=== PATIENT | female | born 1985 ===

== ENCOUNTER 2024-12-16 22:34 | Emergency (ER) | payer OTHER, SELFPAY ==
[2024-12-16 22:38] VITALS: BP 136/86; PULSE 62
[2024-12-16 22:43] VITALS: BP 122/84; PULSE 80; RESP 16; TEMP 36.8; O2SAT 99; BMI 22.6
--- NOTE | 2024-12-16 23:01 | ED.HA ---
HPI - Headache General Chief Complaint: Headache Stated Complaint: headache, dizzy x 2 weeks Time Seen by Provider: 12/16/24 22:37 Source: patient Mode of arrival: EMS Limitations: no limitations History of Present Illness ED Provider: HPI Narrative: Patient's history of migraine headache been having vertiginous feeling for last 2 weeks traveling from [place] to [place] with history of substance abuse in the past was seen at the [facility] 2 weeks ago for same asking for Fioricet which she used to take the about 10 years ago headache is bilateral no tinnitus no light sensitivity has slight nausea earlier Related Data Previous Rx's ?Medication ?Instructions ?Recorded ibuprofen 600 mg tablet 600 mg PO Q6H PRN fever or pain 12/17/24 #30 tabs meclizine 25 mg tablet 25 mg PO TID PRN dizziness #20 tabs 12/17/24 Allergies Allergy/AdvReac Type Severity Reaction Status Date / Time Sulfa (Sulfonamide Allergy Unknown RASH Verified 12/16/24 22:50 Antibiotics) [SULFA (SULFONAMIDE ANTIBIOTICS)] Review of Systems Review of Systems: Yes all other systems are reviewed and are negative [facility] Social History Social History Advance Directives: No Advance Directives Information Provided: No Physical Exam Vital Signs: Vital Signs: Last Vital Signs Temp 98.2 F 12/17/24 00:42 Pulse 79 12/17/24 00:42 Resp 14 12/17/24 00:42 BP 98/56 L 12/17/24 00:42 Pulse Ox 99 12/17/24 00:42 O2 Del Method Room Air 12/17/24 00:42 BMI result Body Mass Index 22.6 Appearance: Alert. Oriented X3. No acute distress. Eyes: PERRLA, No Nystagmus ENT: Pharynx normal. Oral Mucosa moist Neck: Normal inspection. Neck supple. CVS: Normal heart rate and rhythm. Pulses normal. Respiratory: No respiratory distress. Equal air entry bilateral, no wheezing/rales/rhonchi Abdomen: Soft and nontender. Bowel sounds are present, no mass palpable, no CVA tenderness Skin: Skin warm and dry. Normal skin color. Normal skin turgor. Extremities: No lower extremity edema. No calf tenderness Neuro: Oriented X 3. No motor deficit. No sensory deficit.No cerebellar signs , cranial nerves II-XII intact Medications Administered Discontinued Medications Generic Name Dose Route Start Last Admin Trade Name Freq PRN Reason Stop Dose Admin Acetaminophen/Butalbital/Caffeine 1 tab 12/16/24 23:09 12/16/24 23:18 Butalb/Acetamin/Caff 50/325/40 Tablet PO 12/16/24 23:10 1 tab ONCE ONE Administration Meclizine HCl 25 mg 12/16/24 23:09 12/16/24 23:18 Meclizine Hcl 25 Mg Tablet PO 12/16/24 23:10 25 mg ONCE ONE Administration Sumatriptan Succinate 6 mg 12/16/24 23:09 12/16/24 23:18 Sumatriptan Succinate 6 Mg/0.5 Ml Vial SUBCUT 12/16/24 23:10 6 mg ONCE ONE Administration Medical Decision Making Medical Decision Making [facility] Narrative: Patient's headache with vertigo likely benign positional vertigo headache improved after Imitrex meclizine was given for dizziness patient ambulatory in his steady gait will discharge patient home Discharge Plan Discharge Clinical Impression: Migraine, Vertigo Patient Disposition: Home, Self-Care Instructions: Migraine Headache (ED), Vertigo (ED) Additional Instructions: Care and cautions as advised Medication for dizziness as needed every 8 hours Tylenol/Motrin for headaches Prescriptions: New meclizine 25 mg tablet 25 mg PO TID PRN (Reason: dizziness) Qty: 20 0RF ibuprofen 600 mg tablet 600 mg PO Q6H PRN (Reason: fever or pain) Qty: 30 0RF Interventions: ED Discharge Assessment Last Done: 12/17/24 00:42 Discharge Date/Time: 12/17/24 01:03 Print Language: [place] Islander
[2024-12-16] MEDS: SUMAtriptan succinate 6 MG/0.5 ML VIAL SUBCUT (23:18)
[2024-12-16] MEDS: Butalb/Acetamin/Caff 50/325/40 TABLET 1 TAB PO (23:18)
[2024-12-16] MEDS: Meclizine HCl 25 MG TABLET PO (23:18)
[2024-12-16 23:21] VITALS: BP 116/78; PULSE 66
[2024-12-16 23:22] VITALS: BP 123/86; PULSE 71
[2024-12-16 23:24] VITALS: BP 137/88; PULSE 76
[2024-12-16 23:37] VITALS: PULSE 73; RESP 12; TEMP 36.5; O2SAT 99
[2024-12-17 00:42] VITALS: BP 98/56; PULSE 79; RESP 14; TEMP 36.8; O2SAT 99
== END 2024-12-17 01:03 | disposition home or self-care (01) ==
PROVIDERS: Emergency Provider Internal Medicine
DX: G43.909 Migraine, unspecified, not intractable, without status migrainosus (principal); R42 Dizziness and giddiness; R11.0 Nausea; Z79.899 Other long term (current) drug therapy
CPT/HCPCS: 96372; 99284; J3030

== ENCOUNTER 2024-12-19 07:16 | Emergency (ER) | payer OTHER, SELFPAY ==
[2024-12-19 07:18] VITALS: BP 95/34; PULSE 76; RESP 18; TEMP 36.2; O2SAT 98; BMI 21.9
--- OUTSIDE RECORDS SUMMARY | 2024-12-19 07:43 | XMS_ITS | Encounter Summary ---
Author Organization [facility] Address [address] [place] [address] Care Team Providers Care Hunting And Fishing Guide Name Role Phone Ab Hope Primary Care Provider [phone] Encounter Details Date Type Department Care Team (Late st Contact Info) Description 11/22/2024 1:00 PM EST Office Visit [email or web address] @ [address] [phone] Ab Hope PA [address] [place] [phone] Bacterial vaginosis (Primary Dx); Onychomycosis; Exposure to HIV Social History Tobacco Use Types Packs/Day Years Used Date Smoking Tobacco: Never Assessed Social Connections Answer Date Recorded Connectedness 0 09/06/2024 Financial Resource Strain Answer Date R ecorded Financial Resource Strain 1 2023 Stress Answer Date Recorded Stress 0 09/06/2024 Physical Activity Answer Date Recorded Physical Activity 0 09/06/2024 Food Insecurity Answer Date Recorded Food 1 09/06/2024 Transportation Needs Answer Date Record ed Transportation 2 09/06/2024 Housing Stability Answer Date Recorded Housing 2 09/06/2024 Safety and Environment Answer Date Fazal rded Safety 0 09/06/2024 Utilities Answer Date Recorded Utilities 1 09/06/2024 Employment Answer Date Recorded Stress 1 09/06/2024 Comments Unknown Sex and Gender Information Value Date Recorded Sex Assigned at Not on file Legal Sex Female 7:29 AM PDT Gender Identity Not on file Sexual Orientation Not on file documented as of this encounter Last Filed Vital Signs Vital Sign Reading Time Taken Comments Blood Pressure 134/80 11/22/2024 1:30 PM EST Pulse 81 11/22/2024 1:30 PM EST Temperature 36.6 ??C (97.8 ??F) 11/22/2024 1:30 PM ES T Respiratory Rate - - Oxygen Saturation 96% 11/22/2024 1:30 PM EST Inhaled Oxygen Concentration - - Weight - - Height - - Body Mass Index - - documented in this encounter Plan of Treatment Not on file documented as of this encounter Procedures Procedure Name Priority Date/Time Associated Diagnosis Comments CINTHIA ADVANCED VAGINITIS PLUS, TMA Routine 11/22/2024 2:10 PM EST Bacterial vaginosis documented in this encounter Results * C TRACHOMATIS/N GONORRHOEAE RNA,TMA (11/25/2024 3:43 PM EST) Pathologist [facility] CHLAMYDIA TRACHOMATIS RNA, TMA NOT DETECTED NOT DETECTED [facility] NEISSERIA GONORRHOEAE RNA, TMA NOT DETECTED NOT DETECTED [facility] COMMENT [facility] Urine Urine specimen / Unknown 11/25/2024 3:43 PM EST 11/25/2024 3:44 PM EST Narrative [employer] [facility] - 11/28/2024 1:28 PM EST The analytical performance characteristics of this assay, when used to test SurePath(TM) specimens have been determined by [employer]. The modifications have not been cleared or approved by the FDA. This assay has been validated pursuant to the CLIA regulations and is used for clinical purposes. For additional information, please refer to https://education.[employer]faq/QIS112 (This link is being provided for information/ educational purposes only.) [facility] - NO BLOOD DRAW Edited Resul t - Final [facility] [address] [address], [facility] [address] [address] * (ABNORMAL) COMPREHENSIVE METABOLIC PANEL (11/25/2024 3:43 PM EST) Pathologist [facility] GLUCOSE 102(H) 65 - 99 mg/dL [facility] Comment: ?Fasting reference interval For someone without known diabetes, a glucose value between 100 and 125 mg/dL is consistent with prediabetes and should be confirmed with a follow-up test. UREA NITROGEN (BUN) 18 7 - 25 mg/dL [facility] CREATININE (blood) 0.92 0.50 - 0.99 mg/dL [facility] EGFR 80 > OR = 60 mL/min/1. 73m2 [facility] BUN/CREATININE RATIO SEE NOTE: [facility] Comment: ?? Not Reported: BUN and Creatinine are within ?? reference range. ? SODIUM 138 135 - 146 mmol/L [facility] POTASSIUM 3.9 3.5 - 5.3 mmol/L [facility] CHLORIDE 101 98 - 110 mmol/L [facility] CARBON DIOXIDE 27 20 - 32 mmol/L [facility] CALCIUM 9.2 8.6 - 10.2 mg/dL [facility] PROTEIN, TOTAL 7.3 6.1 - 8.1 g/dL [facility] ALBUMIN 4.4 3.6 - 5.1 g/dL [facility] GLOBULIN 2.9 1.9 - 3.7 g/dL (calc) [facility] ALBUMIN/GLOBULI N RATIO 1.5 1.0 - 2.5 (calc) [facility] BILIRUBIN, TOTAL 0.4 0.2 - 1.2 mg/dL [facility] ALKALINE PHOSPHATASE 70 31 - 125 U/L [facility] AST 19 10 - 30 U/L [facility] ALT 15 6 - 29 U/L [facility] Blood Blood / Unknown 11/25/2024 3 :43 PM EST 11/25/2024 3:44 PM EST [facility] - BLOOD DRAW Edited Result - Final [facility] [address] [address], [facility] [address] [phone] * HIV 1/2 AG & AB W/RFLX (4TH GEN) (11/25/2024 3:43 PM EST) HIV AG/AB, 4TH GEN NON-REAC TIVE NON-REAC TIVE [facility] Comment: HIV-1 antigen and HIV-1/HIV-2 antibodies were not detected. There is no laboratory evidence of HIV infection. PLEASE NOTE: This information has been disclosed to you from records whose confidentiality may be protected by state law. ??If your state requires such protection, then the state law prohibits you from making any further disclosure of the information without the specific written consent of the person to whom it pertains, or as otherwise permitted by law. A general authorization for the release of medical or other information is NOT sufficient for this purpose. ?? For additional information please refer to http://education.[employer]faq/KWX682 (This link is being provided for informational/ educational purposes only.) The performance of this assay has not been clinically validated in patients less than 2 years old. Blood Blood / Unknown 11/25/2024 3 :43 PM EST 11/25/2024 3:44 PM EST us [facility] - BLOOD DRAW Final Result Performing Organization Address [facility] de Phone Number [employer] [address] [place] [address], [employer] [address] [phone] * SYPHILIS ANTIBODY CASCADING REFLEX (11/25/2024 3:43 PM EST) T. PALLIDUM AB, EIA NEGATIVE NEGATIVE [employer] [facility] Comment: No antibodies to T. pallidum (the agent causing syphilis) were detected in the specimen. This result, however, does not exclude very recent T. pallidum infection; testing of a second specimen, collected 2-4 weeks after this specimen, is recommended if the index of suspicion for recent infection is high. Blood Blood / Unknown 11/25/2024 3 :43 PM EST 11/25/2024 3:44 PM EST us [facility] - BLOOD DRAW Final Result Performing Organization Address [facility] [address] [facility] Co de Phone Number [employer] [address] [place] [address], [employer] [address] [phone] * (ABNORMAL) SURESWAB ADVANCED VAGINITIS PLUS, TMA (11/22/2024 2:10 PM EST) CHLAMYDIA TRACHOMATIS RNA, TMA NOT DETECTED NOT DETECTED [facility] NEISSERIA GONORRHOEAE RNA, TMA NOT DETECTED NOT DETECTED [facility] COMMENT [facility] SURESWAB(R) ADV BACTERIAL VAGINOSIS (BV), TMA NEGATIVE NEGATIVE [facility] TRICHOMONAS VAGINALIS (TV), TMA NOT DETECTED NOT DETECTED [facility] MIRYAM SPECIES NOT DETECTED NOT DETECTED [facility] MIRYAM GLABRATA DETECTED(A) NOT DETECTED [facility] Comment: C. glabrata, which is responsible for the majority of non-albicans CV in the [place] may have decreased susceptibility to standard antimycotic therapeutic intervention compared to C. albicans. COMMENT [facility] Vaginal Fluid Vaginal structure / Unknown 11/22/2024 2:10 PM EST 11/23/2024 9:28 AM EST Narrative [facility] - 11/24/2024 2:43 AM EST Miryam species C. albicans, C. tropicalis, C. parapsilosis, and/or C. dubliniensis can be detected, but not differentiated, in the Miryam spp. result. For additional information, please refer to https://education.[employer]faq/VOY254 (This link is being provided for information/ educational purposes only.) [facility] - NO BLOOD DRAW Final Result [facility] [address] [address], [facility] [address] [phone] documented in this encounter Visit Diagnoses Diagnosis Bacterial vaginosis- Primary Vaginitis and vulvovaginitis, unspecified Onychomycosis Dermatophytosis of nail Exposure to HIV Contact with or exposure to other viral diseases documented in this encounter Care Teams Hunting And Fishing Guide Relationship Specialty Start Date End Date Ab Hope PA [address] [place] [phone] PCP - General FAMILY MEDICINEKIM 11/14/24 documented as of this encounter
--- OUTSIDE RECORDS SUMMARY | 2024-12-19 07:43 | XMS_ITS | Referral Summary ---
Author Organization [facility] Address [address] [place] [address] Care Team Providers Care Research & Analytics Manager Name Role Phone Patient, Has No Pcp Or Ref Primary Care Provider Unavailable Allergies Active Allergy Reactions Criticality Noted Date Comments Sulfa (Sulfonamide Antibiotics) Rash Medium 12/17 Medications * This document contains information received from the source organization and may not represent a complete record from that organization. buprenorphine- naloxone (Suboxone) 2-0.[address] 1 Film (2 mg of buprenorphine total) under the tongue once a day. 30 Film 4 Active lisdexamfetami ne (Vyvanse) 50 mg capsule Take 1 capsule (50 mg total) by mouth once a day. 30 capsule 4 Active Active Problems Problem Noted Date Diagnosed Date Cellulitis of buttock 04/19/2024 Assessment & Plan (04/19/2024 10:02 AM EDT): Discussed use of warm compresses. Will treat with duricef bid x 10 days. Attention deficit hyperactiv ity disorder (ADHD), combined type 02/22/2024 Assessment & Plan (04/19/2024 10:02 AM EDT): Will fill medication for 1 mo as was preiously done. PDMP shows regular fills of Vyvanse. Advised htat she will have to go to [facility] for further refills if she is going to stay in [place]. Gave her the cotact info for that office. Uncomplicated opioid dependence 02/08/2024 Assessment & Plan (04/19/2024 10:02 AM EDT): Rx sent today; advised re: follow up at [facility] for further refills. Social History Tobacco Use Types Packs/Day Years Used Date Smoking Tobacco: Never Smokeless Tobacco: Current Tobacco Cessation:Ready to Q uit: Not Asked; Counseling Given: Not Answered Alcohol Use Standard Drinks/Week Comments Yes 0 (1 standard drink = 0.6 oz pur e alcohol) Comments Unknown Sex and Gender Information Value Date Recorded Sex Assigned at Female 12/27/2023 1:14 AM EST Legal Sex Female 1:09 PM EDT Gender Identity Not on file Sexual Orientation Not on file Last Filed Vital Signs Vital Sign Reading Time Taken Comments Blood Pressure 102/85 02/14/2024 10:11 AM EDT Pulse 82 02/14/2024 10:11 AM EDT Temperature 36.6 ??C (97.8 ??F) 02/13/2024 8:33 PM ED T Respiratory Rate 18 02/14/2024 10:11 AM EDT Oxygen Saturation 97% 02/14/2024 10:11 AM EDT Inhaled Oxygen Concentration - - Weight 72.6 kg (160 lb) 02/13/2024 8:33 PM EDT Height 160 cm (5' 3 ) 02/13/2024 8:33 PM EDT Body Mass Index 28.34 02/13/2024 8:33 PM EDT Plan of Treatment Not on file Insurance [place] [employer] Care Teams Research & Analytics Manager Relationship Specialty Start Date End Date Patient, Has No Pcp Or Ref DO NOT EDIT THIS RECORD VIA PROVIDER ON THE FLY PCP - General Associate Pastor 02/14/24
--- OUTSIDE RECORDS SUMMARY | 2024-12-19 07:43 | XMS_ITS | Clinical Summary ---
Author Organization [facility] Address [address] [place] [address] Care Team Providers Care Longwall Headgate Operator Name Role Phone Patient, Has No Pcp [...] htat she will have to go to [facility] for further refills if she is going to stay in [place]. Gave her the cotact info for that office. Uncomplicated opioid dependence 02/08/2024 Assessment & Plan (04/19/2024 10:02 AM EDT): Rx sent today; advised re: follow up at [facility] for further refills. Social History Tobacco Use [...] 02/13/2024 8:33 PM EDT Plan of Treatment Health Maintenance Due Date Last Done Comments Cervical Cancer Screening 1985 HPV and Pap Smear 1983 Hepatitis C Screening 1985 Pap Smear 1983 Varicella Vaccines (1 of 2 - 13+ 2-dose series) 1996 Hepatitis B Vaccines (1 of 3 - 19+ 3-dose series) 2002 DTaP,Tdap,and Td Vaccines (1 - Tdap) 2005 Mammogram 2023 COVID-19 Vaccine ( - 2023-2 5 season) 2024 Influenza Vaccine (#1) 2024 Alcohol/Substance Use Screening 11/16/2024 Social Drivers of Health Leidy ual Screening 11/16/2024 RSV Vaccine (60+ years old a nd patients) (1 - 1-dose 75+ series) 2058 HIV Screening Completed 12/27/2023 Pneumococcal Vaccine: Pediat bryant (0-5 Years) and At-Risk Patients (6-64 Years) Aged Out No longer eligible b ased on patient's age to complete this topic Insurance [facility] MEDICAID Care Teams Longwall Headgate Operator Relationship Specialty Start Date End Date Patient, Has No Pcp Or Ref DO NOT EDIT THIS RECORD VIA PROVIDER ON THE FLY PCP - General Pipe Fitter Ammonia 02/14/24
--- OUTSIDE RECORDS SUMMARY | 2024-12-19 07:43 | XMS_ITS | Encounter Summary ---
Author Organization [facility] Address [address] [place] [address] Care Team Providers Care Film Process Operator Name Role Phone Ab Hope Primary Care Provider [phone] Reason for Visit * Reason Comments Test Results Vaginitis/Bacterial Vaginosis Encounter Details Date Type Department Care Team (Latest Contact Info) Description 11/24/2024 9:30 AM EST Office Visit [email or web address] @ [address] [phone] Ab Hope PA [address] [place] [phone] Saroj glabrata infection (Primary Dx); Bacterial vaginosis; Encounter for contraceptive management, unspecified type; Unsheltered homelessness Social History Tobacco Use Types Packs/Day Years [...] on file documented as of this encounter Progress Notes * KIM Hand - 11/24/2024 3:25 PM ESTAssociated Problem(s): Unsheltered homelessness - staying at [facility] in [place] - Patient is currently homeless as documented in homeless status for this encounter. - Given complex limitations of homelessness, provided care as appropriate. Will continue to supportas possible. * KIM Hand - 11/24/2024 3:25 PM ESTAssociated Problem(s): Contraception management - Continue with mirena. Due for removal in 1 yr. 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 * KIM Hand - 11/24/2024 3:23 PM ESTAssociated Problem(s): Bacterial vaginosis - Repeat sureswab negative for BV - If BV reoccurs would cosnider maintenance therapy * KIM Hand - 11/24/2024 3:21 PM ESTAssociated Problem(s): Saroj glabrata infection - Endorses new vaginal/vulvar discomfort/irritation. Surewab positive for saroj glabrate. - Interested in treatment options. Will treat with boric acid suppositories for 2 weeks. Continues with IUD. * KIM Hand - 11/24/2024 2:49 PM EST Provider Ambulatory Note Name: Ilana Newton : 1985 Age: [age] year old Gender: female Address: [address] [place] [id number] Encounter Date: 11/24/2024 Primary Provider: KIM Hand Provider: KIM Hand Department: [facility] Reason for Visit: Chief Complaint Patient presents with Test Results Vaginitis/Bacterial Vaginosis SUBJECTIVE: Ilana Newton is a 39 year old female who presents to the clinic at [facility] to follow-up ontest results from earlier this week. Endorses improved sx after BV tx but with recurrence of discomfort, irritation. Resutls with positive for saroj glabrate. Would like to proceed with treatment. Not covered by insurance. 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 Reviewed plan for repeat testing s/p exposure. Will go to [address] [place] [address] Already scheduled to go there for legal clinic. Denies F/C, N/V, CP, and SOB. Medications Current Outpatient Medications Medication Sig Dispense Refill boric acid, bulk, gran Place 600 mg vaginally nightly at bedtime for 14 days 8.4 g 0 terbinafine (LAMISIL) 250 mg tablet Take 1 Tablet by mouth once daily 30 Tablet 0 dolutegravir (TIVICAY) 50 mg tab Take 1 Tablet by mouth once daily 28 Tablet 0 emtricitabine-tenofovir, TDF, (TRUVADA) 200-300 mg per tablet Take 1 Tablet by mouth once daily 28 Tablet 0 econazole 1 % cream Apply topically once daily 30 g 0 No current facility-administered medications for this visit. Allergies Allergies Allergen Reactions Sulfa (Sulfonamide Antibiotics) Rash Risk Factors - Substance Use: Tobacco Use Tobacco History Tobacco Use Smoking Status Not on file Smokeless Tobacco Not on file Review of Systems Review of Systems OBJECTIVE: Vitals Signs: There were no vitals filed for this visit. Physical Exam Constitutional: General: She is not in acute distress. Appearance: She is well-developed. Pulmonary: Effort: Pulmonary effort is normal. No respiratory distress. Neurological: Mental Status: She is alert and oriented to person, place, and time. Psychiatric: Behavior: Behavior normal. Thought Content: Thought content normal. Most recent labs on file: No results found for: WBC , NEUTROPHILS , LYMPHOCYTES , MIDRANGE , RBC , HGB , HCT , MCV , MCH , MCHC , RDW , PLATELETS , MPV , MONOCYTES , MONOCYTESPCT , EOSINOPHILS , BASOPHILS , BASOPHILSPCT , MONONUCLEAR , BANDS Lab Results Component Value Date NA 140 09/06/2024 K 3.8 09/06/2024 CHLORIDE 102 09/06/2024 CO2 30 09/06/2024 CALCIUM 9.8 09/06/2024 BUN 20 09/06/2024 BUNCREAT SEE NOTE: 09/06/2024 EGFR 80 09/06/2024 CREATININE 0.92 09/06/2024 PROTEIN 7.1 09/06/2024 ALBUMIN 4.5 09/06/2024 GLOBULIN 2.6 09/06/2024 AGRATIO 1.7 09/06/2024 AST 17 09/06/2024 ALT 13 09/06/2024 ALKPHOS 75 09/06/2024 BILIRUBIN 0.2 09/06/2024 GLUCOSE 67 09/06/2024 No results found for: HGBA1C No results found for: TRIGLYC , CHOL , HDL , LDL , LDLHDL , CHOLHDL , VLDL , NONHDL ASSESSMENT/PLAN: General Counseling topics: There is no height or weight on file to calculate BMI. Tobacco History Tobacco Use Smoking Status Not on file Smokeless Tobacco Not on file - Depression screening is due for this patient This Visit PHQ2 Last PHQ9 score On File No data to display SBIRT screening: General Counseling Discussed: Deferred till next visit Problem List Items Addressed This Visit Contraception management - Continue with mirena. Due for removal in 1 yr. 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 Bacterial vaginosis - Repeat sureswab negative for BV - If BV reoccurs would cosnider maintenance therapy Unsheltered homelessness - staying at [facility] in [place] - Patient is currently homeless as documented in homeless status for this encounter. - Given complex limitations of homelessness, provided care as appropriate. Will continue to supportas possible. Saroj glabrata infection - Primary - Endorses new vaginal/vulvar discomfort/irritation. Surewab positive for saroj glabrate. - Interested in treatment options. Will treat with boric acid suppositories for 2 weeks. Continues with IUD. documented in this encounter Plan of Treatment Not on file documented as of this encounter Visit Diagnoses Diagnosis Saroj glabrata infection- Primary Candidiasis of unspecified site Bacterial vaginosis Vaginitis and vulvovaginitis, unspecified Encounter for contraceptive management, unspecified type Unsheltered homelessness documented in this encounter Care Teams Film Process Operator Relationship Specialty Start Date End Date Ab Hope PA [address] [place] [phone] PCP - General FAMILY MEDICINEKIM 11/14/24 documented as of this encounter
--- OUTSIDE RECORDS SUMMARY | 2024-12-19 07:43 | XMS_ITS | Encounter Summary ---
Author Organization [facility] Address [address] [place] [address] Care Team Providers Care Electrical Engineering Manager Name Role Phone Ab Hope Primary Care Provider [phone] Reason for Visit * Reason Comments Lab Result Encounter Details Date Type Department Care Team (Late st Contact Info) Description 10/12/2024 10:00 AM EST Office Visit [facility] @ [address] [address] Alana Blackman, RITA [address] [place] [address] Bacterial vaginosis (Primary Dx) Social History Tobacco Use Types Packs/Day Years [...] Sign Reading Time Taken Comments Blood Pressure 117/73 10/12/2024 10:42 AM EST Pulse 101 10/12/2024 10:42 AM EST Temperature 36.8 ??C (98.2 ??F) 10/12/2024 10:[address] Respiratory Rate - - Oxygen Saturation 99% 10/12/2024 10:42 AM EST Inhaled Oxygen Concentration - - Weight 56.3 kg (124 lb 3.2 oz) 10/12/2024 10:42 AM EST Height 162.6 cm (5' 4 ) 10/12/2024 10:42 AM EST Body Mass Index 21.32 10/12/2024 10:42 AM EST documented in this encounter Progress Notes * Alana Blackman NP - 10/12/2024 10:45 AM ESTAssociated Problem(s): Bacterial vaginosis Sureswab positive for bacterial vaginosis. Sending metronidazole 500mg BID x7d. * Alana Blackman NP - 10/12/2024 10:41 AM EST Provider Ambulatory Note Name: Ilana Newton : 1985 Age: [age] year old Gender: female Address: [address] [place] [id number] Encounter Date: 10/12/2024 Primary Provider: No primary care provider on file. Provider: [facility] Open Access Department: [facility] Reason for Visit: Chief Complaint Patient presents with Lab Result SUBJECTIVE: Ilana Newton is a 39 year old female who presents to the clinic for lab results. Came in to review result of sureswab. Feeling relieved at results. Not a drinker so okay with oral metronidazole. No other concerns today. Medications Current Outpatient Medications Medication Sig Dispense Refill terbinafine (LAMISIL) 250 mg tablet Take 1 Tablet by mouth once daily 30 Tablet 0 No current facility-administered medications for this visit. Allergies Allergies Allergen Reactions Sulfa (Sulfonamide Antibiotics) Rash Risk Factors - Substance Use: Tobacco Use Tobacco History Tobacco Use Smoking Status Not on file Smokeless Tobacco Not on file Review of Systems Review of Systems OBJECTIVE: Vitals Signs: Vitals: 10/12/24 1042 BP: 117/73 Pulse: (!) 101 Temp: 98.2 ??F (36.8 ??C) SpO2: 99% Weight: 124 lb 3.2 oz (56.3 kg) Height: 5' 4 (1.626 m) Physical Exam Vitals reviewed. Constitutional: General: She is not in acute distress. Appearance: She is well-developed. She is not diaphoretic. HENT: Head: Normocephalic and atraumatic. Pulmonary: Effort: Pulmonary effort is normal. No respiratory distress. Skin: General: Skin is warm and dry. Neurological: Mental Status: She is alert and oriented to person, place, and time. Psychiatric: Behavior: Behavior normal. Most recent labs on file: No [...] VLDL , NONHDL ASSESSMENT/PLAN: General Counseling topics: Body mass index is 21.32 kg/m??. Tobacco History Tobacco Use Smoking Status Not on file Smokeless Tobacco Not on file - Depression screening is due for this patient This Visit PHQ2 Last PHQ9 score On File No data to display SBIRT screening: General Counseling Discussed: No intervention required Problem List Items Addressed This Visit Bacterial vaginosis - Primary Sureswab positive for bacterial vaginosis. Sending metronidazole 500mg BID x7d. Alana Blackman NP documented in this encounter Plan of Treatment Not on file documented as of this encounter Visit Diagnoses Diagnosis Bacterial vaginosis- Primary Vaginitis and vulvovaginitis, unspecified documented in this encounter Care Teams Electrical Engineering Manager Relationship Specialty Start Date End Date Ab Hope PA [address] [place] [address] PCP - General [facility] 11/14/24 documented as of this encounter
--- OUTSIDE RECORDS SUMMARY | 2024-12-19 07:43 | XMS_ITS | Encounter Summary ---
Author Organization [facility] Address [address] [place] [address] Care Team Providers Care Tile Inspector Name Role Phone Ab Hope Primary Care Provider [phone] Reason for Visit * Reason Comments STI Exposure Encounter Details Date Type Department Care Team (Latest Contact Info) Description 10/27/2024 10:00 AM EST Office Visit [facility] @ [address] [address] Ab Hope PA [address] [place] [phone] Opioid dependence in remission ([facility]) (Primary Dx); Unsheltered homelessness; Alcohol use; Possible exposure to STI; Exposure to HIV; Bacterial vaginosis; Onychomycosis; Encounter for contraceptive management, unspecified type Social History Tobacco Use Types Packs/Day Years [...] encounter Progress Notes * KIM Hand - 10/27/2024 3:39 PM ESTAssociated Problem(s): Contraception management - Continue with mirena. Due for removal in 1 yr. F/b [employer] in [place]. * KIM Hand - 10/27/2024 3:38 PM ESTAssociated Problem(s): Onychomycosis - Started on oral terbinafine for onychomycosis tx but lost medications. Will continue with topicalantifungal and defer oral tx at this time until more stable situation and can reconsider oral tx. * KIM Hand - 10/27/2024 3:36 PM ESTAssociated Problem(s): Bacterial vaginosis - Sureswab positive for bacterial vaginosis 10/10. S/p metronidazole 500mg BID x7d. - Reports malodor after recent STI exposure. Ppx tx for Trich with metronidazole. Will plan for 7 day course to also cover possible recurrence of BV * KIM Hand - 10/27/2024 3:34 PM ESTAssociated Problem(s): Exposure to HIV -Condom-less vaginal sex with unknown partner with blood in semen on pm of 10/24. Within 72 hr window. Not usual partner, consensual. Intoxicated at the time. Declines ED for SANE for intoxicated sex. - Counseled on options. Interested in STD ppx and HIV PEP. - Recent negative labwork for HIV. Cre wnl.Ok to start PEP for HIV. * KIM Hand - 10/27/2024 3:34 PM ESTAssociated Problem(s): Possible exposure to STI Condom-less vaginal sex with unknown partner with blood in semen on pm of 10/24. Within 72 hr window. Not usual partner, consensual. Intoxicated at the time. Declines ED for SANE for intoxicated sex. - Counseled on options. Interested in STD ppx and HIV PEP. - STI ppx- Ceftriaxone, metronidazole, and azithromycin. No ceftriaxone in office but agreeable to picking up medications from pharmacy and bring back to clinic. * KIM Hand - 10/27/2024 3:29 PM ESTAssociated Problem(s): Alcohol use - Hx of WOOD and problematic EtOH use. Reports drinking too much prior to STI exposure - Discussed MAT. Declines as limited, occasional EtOH intake. - Provided support and motivational interviewing to cont in recovery. * KIM Hand - 10/27/2024 3:27 PM ESTAssociated Problem(s): Opioid dependence in remission ([facility]) - Hx of opoid dependence - Previously on suboxone but not since the spring. - Continues without cravings or thoughts of use - Reviewed OD prevention and that MAT available if needed * KIM Hand - 10/27/2024 3:26 PM ESTAssociated Problem(s): [facility] - Patient is currently homeless as documented in homeless status for this encounter. - Given complex limitations of homelessness, provided care as appropriate. Will continue to supportas possible. * KIM Hand - 10/27/2024 10:28 AM EST Provider Ambulatory Note [facility] Name: Ilana Newton : 1985 Age: [age] year old Gender: female Address: [address] [place], [place] [id number] Encounter Date: 10/27/2024 Primary Provider: No primary care provider on file. Provider: KIM Hand Department: [facility] Reason for Visit: Chief Complaint Patient presents with STI Exposure SUBJECTIVE: Ilana Newton is a 39 year old female [facility] STI exposure- Condom-less vaginal sex with unknown partner with blood in semen on pm of 10/24. Within 72 hr window. Not usual partner, consensual. Intoxicated at the time. Declines ED for SANE for intoxicated sex. Interested in STD ppx and HIV PEP. Recently completed tx for BV. Reports today with malodor today which is different. Denies discharge, pruritus, n/v/d, dysuria, urinary frequency. WOOD- Reports hx of WOOD. Previously on suboxone but denies recent opioid use or cravings. Not interested in suboxone. Reports hx of intermittent crack. EtOH- Reports drank too much prior to STI exposure. Reports intermittent ETOH. Homelessness- Reports that she has an apartment n [place]. Living on streets in [place]. Doesn't feel stuck in [place] but doesn't want to return to [place] until she's physically, mentally,and spiritually whole. Wants respite or retreat so that she can focus on self so that she feels that she can return to apartment. Discussed [facility] admission for care coordination, respite. Declines today as has appointment with social security and concerned about partner who speaks primarily German. Medications Current Outpatient Medications Medication Sig Dispense Refill econazole 1 % cream Apply topically once daily 30 g 0 terbinafine (LAMISIL) 250 mg tablet Take 1 Tablet by mouth once daily 30 Tablet 0 No current facility-administered medications for this visit. Allergies Allergies Allergen Reactions Sulfa (Sulfonamide Antibiotics) Rash Risk Factors - Substance Use: Tobacco Use Tobacco History Tobacco Use Smoking Status Not on file Smokeless Tobacco Not on file Review of Systems Review of Systems See HPI OBJECTIVE: Vitals Signs: There were no vitals [...] , CHOLHDL , VLDL , NONHDL ASSESSMENT/PLAN: Problem List Items Addressed This Visit Contraception management - Continue with mirena. Due for removal in 1 yr. F/b [employer] in [place]. Bacterial vaginosis - Sureswab positive for bacterial vaginosis 10/10. S/p metronidazole 500mg BID x7d. - Reports malodor after recent STI exposure. Ppx tx for Trich with metronidazole. Will plan for 7 day course to also cover possible recurrence of BV [facility] - Patient is currently homeless as documented in homeless status for this encounter. - Given complex limitations of homelessness, provided care as appropriate. Will continue to supportas possible. Opioid dependence in remission ([facility]) (Chronic) - Hx of opoid dependence - Previously on suboxone but not since the spring. - Continues without cravings or thoughts of use - Reviewed OD prevention and that MAT available if needed Onychomycosis - Started on oral terbinafine for onychomycosis tx but lost medications. Will continue with topicalantifungal and defer oral tx at this time until more stable situation and can reconsider oral tx. Alcohol use - Primary - Hx of WOOD and problematic EtOH use. Reports drinking too much prior to STI exposure - Discussed MAT. Declines as limited, occasional EtOH intake. - Provided support and motivational interviewing to cont in recovery. Possible exposure to STI Condom-less vaginal sex with unknown partner with blood in semen on pm of 10/24. Within 72 hr window. Not usual partner, consensual. Intoxicated at the time. Declines ED for SANE for intoxicated sex. - Counseled on options. Interested in STD ppx and HIV PEP. - STI ppx- Ceftriaxone, metronidazole, and azithromycin. No ceftriaxone in office but agreeable to picking up medications from pharmacy and bring back to clinic. Exposure to HIV -Condom-less vaginal sex with unknown partner with blood in semen on pm of 10/24. Within 72 hr window. Not usual partner, consensual. Intoxicated at the time. Declines ED for SANE for intoxicated sex. - Counseled on options. Interested in STD ppx and HIV PEP. - Recent negative labwork for HIV. Cre wnl.Ok to start PEP for HIV. * Gabbi Benton RN - 10/27/2024 10:00 AM EST Subjective: Ilana Newton is a 39 year old female who presents with No chief complaint on file. Urine smells ammonia, PH off. Noticed the last two days. Was with someone with blood in urine. Finished Flagyl course a week ago. Review of Systems Objective: There were no vitals taken for this visit. Physical Exam Assessment/Plan: General Counseling topics: There is no height or weight on file to calculate BMI. Tobacco History Tobacco Use Smoking Status Not on file Smokeless Tobacco Not on file Health Maintenance Due Topic Date Due Lipid Screening Never done STI Counseling Never done LTBI Screening (1) Never done Relationship Safety Screening/Counseling Never done Annual Preventive Care Visit Never done Cervical Cancer Screening Never done Imm-DTaP/Tdap/Td (2 - Td or Tdap) 03/03/2022 Breast Cancer Screening (Mammogram) Never done Alcohol and Drug Screen Never done Depression Annual Screen Never done Imm-Influenza (1) 07/17/2024 [id number] ( season) Never done Problem List Items Addressed This Visit None documented in this encounter Plan of Treatment Not on file documented as of this encounter Visit Diagnoses Diagnosis Opioid dependence in remission ([facility])- Primary Opioid type dependence, in remission Unsheltered homelessness Alcohol use Reserved for inherently not codable concepts WITHOUT codable children Possible exposure to STI Exposure to HIV Contact with or exposure to other viral diseases Bacterial vaginosis Vaginitis and vulvovaginitis, unspecified Onychomycosis Dermatophytosis of nail Encounter for contraceptive management, unspecified type documented in this encounter Care Teams Tile Inspector Relationship Specialty Start Date End Date Ab Hope PA [address] [place] [phone] PCP - General FAMILY MEDICINEKIM 11/14/24 documented as of this encounter
--- OUTSIDE RECORDS SUMMARY | 2024-12-19 07:43 | XMS_ITS | Encounter Summary ---
Author Organization [facility] Address [address] [place] [address] Care Team Providers Care Foam Gun Operator Name Role Phone Ab Hope Primary Care Provider [phone] Reason for Visit * Reason Comments STI Encounter Details Date Type Department Care Team (Late st Contact Info) Description 11/11/2024 10:00 AM EST [facility] @ [address] [phone] Kimber Walton, HARDIK [address] [place] [phone] Bacterial vaginosis (Primary Dx); Possible exposure to STI Social History Tobacco Use Types Packs/Day Years [...] Sign Reading Time Taken Comments Blood Pressure 125/78 11/11/2024 11:10 AM EST Pulse 100 11/11/2024 11:10 AM EST Temperature 37.2 ??C (99 ??F) 11/11/2024 11:10 AM EST Respiratory Rate - - Oxygen Saturation 99% 11/11/2024 11:10 AM EST Inhaled Oxygen Concentration - - Weight - - Height - - Body Mass Index - - documented in this encounter Progress Notes * Kimber Walton RN - 11/11/2024 2:59 PM ESTAssociated Problem(s): Bacterial vaginosis Pt presents to the [facility] clinic with ongoing symptoms of BV. Finished metronidazole more than 1 week ago. Has had unprotected vaginal sex with one male partner since treatment. Consulted with RITA Blackman. Another sureswab was sent and instructed pt to RTC next week for results and a new plan. Pt verbalized understanding. * Kimber Walton RN - 11/11/2024 1:42 PM EST Subjective: Ilana Newton is a 39 year old female who presents with STI Pt came to [facility] clinic reporting that symptoms of BV have not changed despite finishing antibiotics prescribed for it. Continues to have malodorous urine. Review of Systems Constitutional: Negative for chills and fever. Genitourinary: Negative for dysuria, frequency, pelvic pain, urgency, vaginal discharge and vaginalpain. Objective: Blood pressure 125/78, pulse 100, temperature 99 ??F (37.2 ??C), SpO2 99%. Physical Exam Vitals reviewed. Pulmonary: Effort: Pulmonary effort is normal. Neurological: Mental Status: She is alert and oriented to person, place, and time. Psychiatric: Mood and Affect: Mood normal. Behavior: Behavior normal. Assessment/Plan: General Counseling topics: There is no height or weight on file to calculate BMI. Tobacco History Tobacco Use Smoking Status Not on file Smokeless Tobacco Not on file - Depression screening is due for this patient This Visit PHQ2 Last PHQ9 score On File No data to display SBIRT screening: General Counseling Discussed: No intervention required TB Screening History: Last Quantiferon: Last PPD: No PPD TB Symptom Screen: Click Here to Launch Symptom Screen No data to display Health Maintenance Due Topic Date Due Lipid Screening Never done STI Counseling Never done LTBI Screening (1) Never done Depression Monitoring Never done Relationship Safety Screening/Counseling Never done Cervical Cancer Screening Never done Breast Cancer Screening (Mammogram) Never done Alcohol and Drug Screen Never done Imm-Influenza (1) 07/17/2024 [id number] ( season) Never done Problem List Items Addressed This Visit Reproductive Bacterial vaginosis Pt presents to the [facility] clinic with ongoing symptoms of BV. Finished metronidazole more than 1 week ago. Has had unprotected vaginal sex with one male partner since treatment. Consulted with RITA Blackman. Another sureswab was sent and instructed pt to RTC next week for results and a new plan. Pt verbalized understanding. Other Possible exposure to STI - Primary Relevant Orders SURESWAB ADVANCED VAGINITIS PLUS, TMA documented in this encounter Plan of Treatment Not on file documented as of this encounter Procedures Procedure Name Priority Date/Time Associated Diagnosis Comments SURESWAB ADVANCED VAGINITIS PLUS, TMA Routine 11/11/2024 11:18 AM EST Possible exposure to STI documented in this encounter Results * (ABNORMAL) SURESWAB ADVANCED VAGINITIS PLUS, TMA (11/11/2024 11:18 AM EST) SURESWAB(R) ADV BACTERIAL VAGINOSIS (BV), TMA POSITIVE(A) NEGATIVE [employer] MIRYAM SPECIES DETECTED(A) NOT DETECTED [employer] MIRYAM GLABRATA NOT DETECTED NOT DETECTED [employer] COMMENT [employer] [employer] TRICHOMONAS VAGINALIS (TV), TMA NOT DETECTED NOT DETECTED [employer] CHLAMYDIA TRACHOMATIS RNA, TMA NOT DETECTED NOT DETECTED [employer] NEISSERIA GONORRHOEAE RNA, TMA NOT DETECTED NOT DETECTED [employer] COMMENT [employer] [place] [employer] Vaginal Fluid Vaginal structure / Unknown 11/11/2024 11:18 AM EST 11/12/2024 1:54 AM EST Narrative [employer] - 11/12/2024 11:31 AM EST Miryam species C. albicans, C. tropicalis, C. parapsilosis, and/or C. dubliniensis can be detected, but not differentiated, in the Miryam spp. result. For additional information, please refer to https://education.[employer]/faq/UDB948 (This link is being provided for information/ educational purposes only.) us Alana Blackman [facility] - NO BLOOD DRAW Fin al Result [employer] [facility] [address] [address], [employer] [facility] [address] [place] [address] documented in this encounter Visit Diagnoses Diagnosis Bacterial vaginosis- Primary Vaginitis and vulvovaginitis, unspecified Possible exposure to STI documented in this encounter Care Teams Foam Gun Operator Relationship Specialty Start Date End Date Ab Hope PA [address] [place] [phone] PCP - General FAMILY MEDICINEKIM 11/14/24 documented as of this encounter
--- OUTSIDE RECORDS SUMMARY | 2024-12-19 07:43 | XMS_ITS | Clinical Summary ---
Author Organization [facility] Address [address] [place] [address] Care Team Providers Care Lace Stripper Name Role Phone Ab Hope Primary Care Provider [phone] Source Comments PLEASE NOTE, if this patient is a minor, it may be UNLAWFUL to discuss sensitive information that is contained in these records (such as FAMILY PLANNING, MENTAL HEALTH or SUBSTANCE ABUSE) with the minor patient's parent or other person without the patient's specific authorization.[facility] Allergies Active Allergy Reactions Criticality Noted Date Comments Sulfa (Sulfonamide Antibiotics) Rash Medium 07/2016 Medications econazole 1 % cream Apply topically once daily 30 g 4 Active dolutegravir (TIVICAY) 50 mg tab Take 1 Tablet by mouth once daily 28 Tablet 4 Active emtricitabine- tenofovir, TDF, (TRUVADA) 200-300 mg per tablet Take 1 Tablet by mouth once daily 28 Tablet 4 Active terbinafine (LAMISIL) 250 mg tabletIndicati ons:Onychomyco sis Take 1 Tablet by mouth once daily 30 Tablet 5 Active terbinafine (LAMISIL) 250 mg tablet Take 1 Tablet by mouth once daily 30 Tablet 4 11/22/19 25 Discontinu ed(Reorder (E-Cancel Not Sent)) metroNIDAZOLE (METROGEL) 0.75 % (37.5mg/5 gram) vaginal gel Place 1 Applicator vaginally 2 (two) times daily 70 g 4 11/22/19 25 Discontinu ed(Outdate d-Removed from Med List (E-Cancel Not Sent)) boric acid, bulk, gran Place 600 mg vaginally nightly at bedtime for 14 days 8.4 g 5 11/24/19 25 Discontinu ed(Exchang e, Therapeuti c) boric acid, bulk, gran Place 600 mg vaginally nightly at bedtime for 14 days 8.4 g 5 12/08/19 25 Active Problems Patient Care Coordination No te Formatting of this note migh t be different from the original. Pt newly in [place] after spending short time in [place]. Originally from [facility]. Unsure what her plans are so not ready to establish primary care at this moment, but looking to get labs for basic health and STI screening and get a new script for her dhara which was lost. Previous prescriber was a Dr. Bernabe in [place]. Directed pt to [facility] for lab and screenings today and encouraged pt to connect with there on Thursday if not possible today. Pt to return to [facility] for UA culture results later this week. 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 Surewab positive for saroj glabrate. - Interested in treatment options. Will treat with boric acid suppositories for 2 weeks. Continues with IUD. Alcohol use 10/27/2024 Assessment & Plan (10/27/2024 3:29 PM EST): - Hx of WOOD and problematic EtOH use. Reports drinking too much prior to STI exposure - Discussed MAT. Declines as limited, occasional EtOH intake. - Provided support and motivational interviewing to cont in recovery. Possible exposure to STI 10/27/2024 Assessment & Plan (10/27/2024 3:34 PM EST): Condom-less vaginal sex with unknown partner with [...] bring back to clinic. Exposure to HIV 10/27/2024 Assessment & Plan (10/27/2024 3:35 PM EST): -Condom-less vaginal sex with unknown partner with blood in semen on pm of 10/24. Within 72 hr window. Not usual partner, consensual. Intoxicated at the time. Declines ED for [facility] for intoxicated sex. - Counseled on options. Interested in STD ppx and HIV PEP. - Recent negative labwork for HIV. Cre wnl.Ok to start PEP for HIV. Psychiatric disorder 10/21/2024 Assessment & Plan (10/21/2024 2:23 PM EST): - Hx of ADHD. Previously prescribed Vyvanse and Lamictal - Out of medication. - Defer until patient can establish with behavioral health - Discussed [facility] and given information. - Unable to schedule behavioral health intake as front desk officer has already left but patient to return and schedule appt. Hx of gonorrhea 10/21/2024 Assessment & Plan (10/21/2024 2:26 PM EST): - Recent gonorrhea+ with treatment. Wants to confirm cure. Partner co-treated. - Currently asymptomatic. Hx of hepatitis C 10/21/2024 Assessment & Plan (10/21/2024 2:24 PM EST): - hx of HCV. HCV ab+ but negative VL on 09/06/24. Unsheltered homelessness 10/21/2024 Assessment & Plan (11/24/2024 3:25 PM EST): - staying at [facility] - Patient is currently homeless as documented in homeless status for this encounter. - Given complex limitations of homelessness, provided care as appropriate. Will continue to support as possible. Assessment & Plan (10/27/2024 3:26 PM EST): - staying outside [facility] - Patient is currently homeless as documented in homeless status for this encounter. - Given complex limitations of homelessness, provided care as appropriate. Will continue to support as possible. Assessment & Plan (10/21/2024 2:28 PM EST): - [place] - Patient is currently homeless as documented in homeless status for this encounter. - Given complex limitations of homelessness, provided care as appropriate. Will continue to support as possible. Opioid dependence in remission ([facility]) 024 Assessment & Plan (10/27/2024 3:27 PM EST): - Hx of opoid dependence - Previously on suboxone but not since the spring. - Continues without cravings or thoughts of use - Reviewed OD prevention and that MAT available if needed Assessment & Plan (10/21/2024 2:31 PM EST): - Hx of opoid dependence. - Previously on suboxone but not since the spring. - Doing well without cravings or thoughts of use - Counseled on OD prevention if were to use in the future - Reviewed that MAT available including subxone at [facility] if felt that she needs in the future. Onychomycosis 10/21/2024 Assessment & Plan (10/27/2024 3:38 PM EST): - Started on oral terbinafine for onychomycosis tx but lost medications. Will continue with topical antifungal and defer oral tx at this time until more stable situation and can reconsider oral tx. Assessment & Plan (10/21/2024 2:36 PM EST): - Thick dystrophic nails. Motivated for treatment. Discussed length of treatment and expectation for results. Discussed deferring while sleeping outside given risk of conditions that might prompt reoccurence but motivated for treatment. - Lab Results Component Value Date PROTEIN 7.1 09/06/2024 AST 17 09/06/2024 ALT 13 09/06/2024 ALKPHOS 75 09/06/2024 - Recent baseline labs wnl. - Will tx with oral terbinafine x Bacterial vaginosis 10/12/2024 Assessment & Plan (11/24/2024 3:25 PM EST): - Repeat sureswab negative for BV - If BV reoccurs would cosnider maintenance therapy Assessment & Plan (11/11/2024 2:59 PM EST): Pt presents to the [facility] clinic with ongoing symptoms of BV. Finished metronidazole more than 1 week ago. Has had unprotected vaginal sex with one male partner since treatment. Consulted with RITA Blackman. Another sureswab was sent and instructed pt to RTC next week for results and a new plan. Pt verbalized understanding. Assessment & Plan (10/27/2024 3:36 PM EST): - Sureswab positive for bacterial vaginosis 10/10. S/p metronidazole 500mg BID x7d. - Reports malodor after recent STI exposure. Ppx tx for Trich with metronidazole. Will plan for 7 day course to also cover possible recurrence of BV Assessment & Plan (10/12/2024 10:45 AM EST): Sureswab positive for bacterial vaginosis. Sending metronidazole 500mg BID x7d. Elevated blood pressure read ing in office without diagnosis of hypertension 09/08/2024 Assessment & Plan (09/08/2024 2:15 PM EDT): BP a little above goal Recheck next visit Cigarette nicotine dependence without complicati on 09/08/2024 Assessment & Plan (10/21/2024 2:32 PM EST): - 1/2ppd - Contemplative. Declines NRT, chantix - Tobacco Intervention:provided tobacco cessation counseling Counseling time: 3-10 minutes Assessment & Plan (09/08/2024 2:16 PM EDT): Declines treatment. CTF Contraception management 09/08/2024 Assessment & Plan (11/24/2024 3:25 PM EST): - Continue with mirena. Due for removal in 1 yr. F/b [facility] in [place]. Assessment & Plan (10/27/2024 3:39 PM EST): - Continue with mirena. Due for removal in 1 yr. F/b [facility] [facility]ER in [place]. Assessment & Plan (09/08/2024 2:17 PM EDT): Mirena in place, reports is on year 7. F/b TW[employer] P[employer]ER in [place]. Would be due for removal in 1 year. CTF with TWIST P[employer]ER Urinary frequency 09/06/2024 Assessment & Plan (09/08/2024 2:14 PM EDT): Uhcg neg U/a c/w UTI Will treat for UTI with nitrofurantoin 100 mg BID x 5 days Rtc if sx persist or worsen Assessment & Plan (09/06/2024 4:00 PM EDT): Instructed pt how to provide a sample using a clean catch . Pt verbalized understanding and returned with sx promptly. Urine dipstick shows positive for nitrites and trace leukocytes. Micro exam: not done. Sample sent out for UA c/ reflex to culture. Pt verbalizes she will stop back by clinic later in the week to check on results. Does not have a phone currently. Encounter for screening exam ination for sexually transmitted infection 09/06/2024 Assessment & Plan (09/08/2024 2:13 PM EDT): Requesting testing No concerns about an exposure. Check labs HIV ed PrEP and PEP reviewed, not appropriate now. Encounters Date Type Department Care Team Description 11/24/2024 9:30 AM EST Office Visit [facility] @ [address] [address] Ab Hope PA Saroj glabrata infection (Primary Dx); Bacterial vaginosis; Encounter for contraceptive management, unspecified type; Unsheltered homelessness 11/24/2024 Interim Notes [facility] @ [facility] [address] [place] [phone] Gabriela Alcantar 11/22/2024 1:00 PM EST Office Visit [facility] @ [address] [phone] Ab Hope PA Bacterial vaginosis (Primary Dx); Onychomycosis; Exposure to HIV 11/14/2024 12:00 PM EST Office Visit [facility] @ [address] [phone] Kimber Walton RN Bacterial vaginosis (Primary Dx) 11/11/2024 10:00 AM EST Office Visit [email or web address] @ [address] [phone] Kimber Walton RN Bacterial vaginosis (Primary Dx); Possible exposure to STI 11/01/2024 1:00 PM EST Office Visit [email or web address] @ [address] [phone] Ladan Dominguez RN Psychiatric disorder (Primary Dx); Depression, unspecified depression type; Complex care coordination 10/28/2024 12:30 PM EST Office Visit [facility] [[email or web address] @ [address] [phone] Gabbi Benton RN Possible exposure to STI (Primary Dx) 10/27/2024 10:00 AM EST Office Visit [facility] [[email or web address] @ [address] [address] Ab Hope PA Opioid dependence in remission ([facility]) (Primary Dx); Unsheltered homelessness; Alcohol use; Possible exposure to STI; Exposure to HIV; Bacterial vaginosis; Onychomycosis; Encounter for contraceptive management, unspecified type 10/21/2024 1:00 PM EST Office Visit [facility] [[email or web address] @ [address] [phone] Gabbi Benton RN Onychomycosis (Primary Dx) 10/12/2024 10:00 AM EST Office Visit [facility] [[email or web address] @ [address] [phone] Alana Blackman NP Bacterial vaginosis (Primary Dx) 10/06/2024 1:00 PM EST Office Visit [facility] [[email or web address] @ [address] [address] Ab Hope PA Onychomycosis (Primary Dx); Hx of gonorrhea; Psychiatric disorder; Hx of hepatitis C; Unsheltered homelessness; Opioid dependence in remission ([facility]); Cigarette nicotine dependence without complication 10/05/2024 11:30 AM EST Office Visit [facility] @ [address] [address] Gabbi Benton RN Complex care coordination (Primary Dx) from Last 3 Months Social History Tobacco Use Types Packs/Day Years [...] 11/22/2024 1:30 PM ES T Respiratory Rate 16 09/06/2024 6:03 PM EDT Oxygen Saturation 96% 11/22/2024 1:30 PM EST Inhaled Oxygen Concentration - - Weight 56.3 kg (124 lb 3.2 oz) 10/12/2024 10:42 AM EST Height 162.6 cm (5' 4 ) 10/12/2024 10:42 AM EST Body Mass Index 21.32 10/12/2024 10:42 AM EST Plan of Treatment Health Maintenance Due Date Last Done Comments Depression Monitoring 1983 HPV Screening 1983 LTBI Screening (#1) 1983 Lipid Screening 1983 Pap + HPV 1983 STI Counseling 1983 Relationship Safety Screening/Counseling 1998 Cervical Cancer Screening 2004 Pap Smear 2004 Breast Cancer Screening (Mammogram) 2023 [id number] ( season) 2024 Imm-Influenza (#1) 2024 02/16/2012 Alcohol and Drug Screen 11/16/2024 11/14/2024, 11/14 Tobacco Cessation Counseling (#1) 10/21/2025 024 Tobacco Screening 10/21/2025 10/21/2024 Imm-DTaP/Tdap/Td (3 - Td or Tdap) 10/27/2025 015, 03/03/2012 Hypertension Screening (#1) 11/22/2025 Diabetes Screening 11/25/2027 11/25/2024, 09/06/2024 HIV Screening Completed 11/25/2024, 09/06/2024 Cervical Ablation/Cold-Knife Conization Discontinued Cervical Cryotherapy Discontinued Colposcopy Discontinued Endometrial Biopsy Discontinued Excision/Leep Discontinued HPV Genotyping Discontinued Imm-Hepatitis A Discontinued Imm-Hepatitis B Discontinued Vaginal Pap Discontinued Vulvoscopy Discontinued Procedures Procedure Name Priority Date/Time Associated Diagnosis Comments SYPHILIS ANTIBODY CASCADING REFLEX Routine 11/25/2024 3:43 PM EST Exposure to HIV HIV 1/2 AG & AB W/RFLX (4TH GEN) Routine 11/25/2024 3:43 PM EST Exposure to HIV COMPREHENSIVE METABOLIC PANEL Routine 11/25/2024 3:43 PM EST Exposure to HIV C TRACHOMATIS/N GONORRHOEAE RNA,TMA Routine 11/25/2024 3:43 PM EST Exposure to HIV SURESWAB ADVANCED VAGINITIS PLUS, TMA Routine 11/22/2024 2:10 PM EST Bacterial vaginosis SURESWAB ADVANCED VAGINITIS PLUS, TMA Routine 11/11/2024 11:18 AM EST Possible exposure to STI SURESWAB ADVANCED VAGINITIS PLUS, TMA Routine 10/10/2024 9:42 AM EST History of gonorrhea from Last 3 Months Results * SYPHILIS ANTIBODY CASCADING REFLEX (11/25/2024 3:43 PM EST) T. PALLIDUM AB, EIA NEGATIVE NEGATIVE [facility] Comment: No antibodies to T. pallidum (the [...] EST Ab [facility] - BLOOD DRAW Final Result [facility] [address] [place] [id number], [facility] [address] [place] [phone] * HIV 1/2 AG & AB W/RFLX (4TH GEN) (11/25/2024 3:43 PM EST) HIV AG/AB, 4TH GEN NON-REAC TIVE NON-REAC TIVE [facility] Comment: HIV-1 antigen and HIV-1/HIV-2 antibodies were [...] ?? For additional information please refer to http://education.Mass Appeal.imbookin (Pogby)/faq/LWL926 (This link is being provided for informational/ educational purposes only.) The performance of this assay has not been clinically validated in patients less than 2 years old. Blood Blood / Unknown 11/25/2024 3 :43 PM EST 11/25/2024 3:44 PM EST us Ab [facility] - BLOOD DRAW Final Result Performing Organization Address [facility] Co de Phone Number [facility] [address] [address], [facility] [address] [address] * C TRACHOMATIS/N GONORRHOEAE RNA,TMA (11/25/2024 3:43 PM EST) [facility] CHLAMYDIA TRACHOMATIS RNA, TMA NOT DETECTED NOT DETECTED [facility] NEISSERIA GONORRHOEAE RNA, TMA NOT DETECTED NOT DETECTED [facility] COMMENT [facility] Urine Urine specimen / Unknown 11/25/2024 3:43 PM EST 11/25/2024 3:44 PM EST Narrative [facility] - 11/28/2024 1:28 PM EST The analytical performance characteristics of this assay, when used to test SurePath(TM) specimens have been determined by [employer]. The modifications have not been cleared or approved by the FDA. This assay has been validated pursuant to the CLIA regulations and is used for clinical purposes. For additional information, please refer to https://education.[employer] Appeal.imbookin (Pogby)/faq/NQM667 (This link is being provided for information/ educational purposes only.) us Ab [facility] - NO BLOOD DRAW Edited Resul t - Final Performing Organization Address [facility] Co de Phone Number [facility] [address] [address], [facility] [address] [phone] * (ABNORMAL) COMPREHENSIVE METABOLIC PANEL (11/25/2024 3:43 PM EST) [facility] GLUCOSE 102(H) 65 - 99 mg/dL [facility] Comment: ?Fasting reference interval For someone without known diabetes, a glucose value between 100 and 125 mg/dL is consistent with prediabetes and should be confirmed with a follow-up test. UREA NITROGEN (BUN) 18 7 - 25 mg/dL [facility] CREATININE (blood) 0.92 0.50 - 0.99 mg/dL [facility] EGFR 80 > OR = 60 mL/min/1. 73m2 [facility] BUN/CREATININE RATIO SEE NOTE: [facility] Comment: ?? Not Reported: BUN and Creatinine are within ?? reference range. ? SODIUM 138 135 - 146 mmol/L [facility] POTASSIUM 3.9 3.5 - 5.3 mmol/L [facility] CHLORIDE 101 98 - 110 mmol/L [facility] CARBON DIOXIDE 27 20 - 32 mmol/L [facility] CALCIUM 9.2 8.6 - 10.2 mg/dL [facility] PROTEIN, TOTAL 7.3 6.1 - 8.1 g/dL [facility] ALBUMIN 4.4 3.6 - 5.1 g/dL [facility] GLOBULIN 2.9 1.9 - 3.7 g/dL (calc) [facility] ALBUMIN/GLOBULI N RATIO 1.5 1.0 - 2.5 (calc) [facility] BILIRUBIN, TOTAL 0.4 0.2 - 1.2 mg/dL [facility] ALKALINE PHOSPHATASE 70 31 - 125 U/L [facility] AST 19 10 - 30 U/L [facility] ALT 15 6 - 29 U/L [facility] Blood Blood / Unknown 11/25/2024 3 :43 PM EST 11/25/2024 3:44 PM EST us Ab [facility] - BLOOD DRAW Edited Result - Final [facility] [address] [address], [facility] [address] [place] [address] * (ABNORMAL) SURESWAB ADVANCED VAGINITIS PLUS, TMA (11/22/2024 2:10 PM EST) Only the most recent of3 resultswithin the time period is included. CHLAMYDIA TRACHOMATIS RNA, TMA NOT DETECTED NOT DETECTED [facility] NEISSERIA GONORRHOEAE RNA, TMA NOT DETECTED NOT DETECTED [facility] COMMENT [facility] SURESWAB(R) ADV BACTERIAL VAGINOSIS (BV), TMA NEGATIVE NEGATIVE [facility] TRICHOMONAS VAGINALIS (TV), TMA NOT DETECTED NOT DETECTED [facility] SAROJ SPECIES NOT DETECTED NOT DETECTED [facility] SAROJ GLABRATA DETECTED(A) NOT DETECTED [facility] Comment: C. glabrata, which is responsible for the majority of non-albicans CV in the [place] may have decreased susceptibility to standard antimycotic therapeutic intervention compared to C. albicans. COMMENT [facility] Vaginal Fluid Vaginal structure / Unknown 11/22/2024 2:10 PM EST 11/23/2024 9:28 AM EST Narrative [facility] - 11/24/2024 2:43 AM EST Saroj species C. albicans, C. tropicalis, C. parapsilosis, and/or C. dubliniensis can be detected, but not differentiated, in the Saroj spp. result. For additional information, please refer to https://education.Elastica/faq/MXA630 (This link is being provided for information/ educational purposes only.) Ab [facility] - NO BLOOD DRAW Final Result Performing Organization Address City/State/[facility] Co de Phone Number [employer] [address] [address], [facility] [address] [address] from Last [address] [facility] Member Subscriber Plan / Payer (Ef fective 2024-Present) Name:Lamra Ilana Relation to Subscriber:Self Name:Ilana Newton Payer ID:[id number] Group ID:Not on file Type:Medicaid Address: [address] [address] Care Teams Lace Stripper Relationship Specialty Start Date End Date Ab Hope PA [address] [place] [phone] PCP - General FAMILY MEDICINE, [place] 11/14/24
--- OUTSIDE RECORDS SUMMARY | 2024-12-19 07:43 | XMS_ITS | Data Portability ---
Author Organization [facility], , [facility] Address [address] [place] [address] Care Team Providers Care Shore Working Supervisor Name Role Phone YNES PRADHAN Primary Care Provider Unavailabl e Assessment Encounter Date Assessment Date Assessment LastModified by Organization Details LastModified Time 08/23/2020 08/23/2020 Patient agreed t o this visit via phone or secure telehealth platform due to the COVID -19 pandemic. Patient understands this is a scheduled visit and the usual procedures with regard to billing and confidentiality apply. Patient was notified that the provider location is home Patient location: home During the visit the patient? s medical history and medical record were reviewed. The patient was notified to call our office for worsening or urgent symptoms. [email or web address] Not available 08/23/2020 06:36:50 Plan of Treatment Reminders Order Date Submit Date Provider Last Modified By Organization Details Last Modified Time Details Appointments None recorded. Lab None recorded. Referral None recorded. Procedures None recorded. Surgeries None recorded. Imaging None recorded. Medication Orders Concerta 54 mg tablet,ext ended release 2019 [facility] #[id number], [address], [place], [id number], 0 14:28:58 gabapentin 300 mg capsule 2019 020 [facility] #[id number], [address], [place], [id number], 0 13:37:30 Concerta 54 mg tablet,ext ended release 2019 020 [facility] #[id number], [address], [place], [id number], 0 13:37:29 Concerta 54 mg tablet,ext ended release 2019 020 INTERFACE [email or web address] #76557, [address], [place], [id number], 0 11:27:38 gabapentin 300 mg capsule 2019 020 INTERFACE [email or web address] #39924, [address], [place], [id number], 0 13:39:14 lamotrigin e 150 mg tablet 2019 020 INTERFACE [facility] #67793, [address], [place], [id number], 0 13:39:13 Concerta 54 mg tablet,ext ended release 2019 020 INTERFACE [email or web address] #38844, [address], [place], [id number], 0 13:39:13 Concerta 54 mg tablet,ext ended release 2020 [facility], [address], [place], [id number], 1 11:51:11 Patient TargetsNo targets recorded. Patient InstructionsNo instructions recorded. Reason for Referral None Reported. Results Created Date Observation Date Name Description Value Unit Range Abnormal Flag Note LastModifiedBy Organization Detail LastModifiedTime 10/25/20 20 10/25/2020 CBC WBC 5.63 K/? ? ?L 3.98-1 0.04 Not Available [address], [address], 10/25/2020 17:15:20 10/25/20 20 10/25/2020 CBC RBC 4.13 M/? ? ?L 3.93-5 .22 Not Available [address], [address], 10/25/2020 17:15:20 10/25/20 20 10/25/2020 CBC HGB 12.4 g/dL 11.2-1 5.7 Not Available [address], [address], 10/25/2020 17:15:20 10/25/20 20 10/25/2020 CBC HCT 36.7 % 34.1-4 4.9 Not Available [address], [address], 10/25/2020 17:15:20 10/25/20 20 10/25/2020 CBC MCV 88.9 fL 79.4-9 4.8 Not Available [address], [address], 10/25/2020 17:15:20 10/25/20 20 10/25/2020 CBC MCH 30.0 pg 25.6-3 2.2 Not Available [address], [address], 10/25/2020 17:15:20 10/25/20 20 10/25/2020 CBC MCHC 33.8 g/dL 32.2-3 5.5 Not Available [address], [address], 10/25/2020 17:15:20 10/25/20 20 10/25/2020 CBC plt 334 K/? ? ?L 182-36 9 Not Available [address], [address], 10/25/2020 17:15:20 10/25/20 20 10/25/2020 CBC MPV 9.1 fL 9.4-12 .3 low Not Available [address], [address], 10/25/2020 17:15:20 10/25/20 20 10/25/2020 CBC neut% 61.4 % 34.0-7 1.1 Not Available [address], [address], 10/25/2020 17:15:20 10/25/20 20 10/25/2020 CBC neut# 3.46 1.56-6 .13 Not Available [address], [address], 10/25/2020 17:15:20 10/25/20 20 10/25/2020 CBC lymph % 29.8 % 19.3-5 1.7 Not Available [address], [address], 10/25/2020 17:15:20 10/25/20 20 10/25/2020 CBC lymph # 1.68 K/? ? ?L 1.18-3 .74 Not Available [address], [address], 10/25/2020 17:15:20 10/25/20 20 10/25/2020 CBC mono% 7.3 % 4.7-12 .5 Not Available [address], [address], 10/25/2020 17:15:20 10/25/20 20 10/25/2020 CBC mono# 0.41 0.24-0 .56 Not Available [address], [address], 10/25/2020 17:15:20 10/25/20 20 10/25/2020 CBC eo% 0.9 % 0.7-5. 8 Not Available [address], [address], 10/25/2020 17:15:20 10/25/20 20 10/25/2020 CBC eo# 0.05 0.04-0 .36 Not Available [address], [address], 10/25/2020 17:15:20 10/25/20 20 10/25/2020 CBC baso% 0.4 % 0.1-1. 2 Not Available [address], [address], 10/25/2020 17:15:20 10/25/20 20 10/25/2020 CBC baso# 0.02 0.00-0 .08 Not Available [address], [address], 10/25/2020 17:15:20 10/25/20 20 10/25/2020 CBC RDW-CV 12.5 % 11.7-1 4.4 Not Available [address], [address], 10/25/2020 17:15:20 10/25/20 20 10/25/2020 CBC Ig% 0.200 % 0.000- 1.500 Ig % >0.5 Indic ates possi ble Left Shift Not Available [address], [address], 10/25/2020 17:15:20 10/25/20 20 10/25/2020 CBC Ig# 0.010 0.000- 0.093 Not Available [address], [address], 10/25/2020 17:15:20 10/25/20 20 10/25/2020 CBC NRBC% 0.0 % 0.0-0. 2 Not Available [address], [address], 10/25/2020 17:15:20 10/25/20 20 10/25/2020 CBC NRBC# 0.000 0.000- 0.012 Not Available [address], [address], 10/25/2020 17:15:20 10/25/20 20 10/26/2020 CMP, serum or plasm a glucose 100 mg/dL 70-100 LIPS= Speci men Sligh tly Lipem ic. Chem Resul ts may be effec jone. Not Available [address], [address], 10/26/2020 09:07:52 10/25/2010/26/2020 CMP, serum or plasm a BUN 13 mg/dL 7-18 Not Available [address], [address], 10/26/2020 09:07:52 10/25/2010/26/2020 CMP, serum or plasm a creatinine 0.7 mg/dL 0.8-1. 3 low Not Available [address], [address], 10/26/2020 09:07:52 10/25/20 20 10/26/2020 CMP, serum or plasm a B/C 18.6 ratio Not Available [address], [address], 10/26/2020 09:07:52 10/25/2010/26/2020 CMP, serum or plasm a GFR -non 105.5 mL/mi n Recom yoli d GFR by the Natio nal Kidne y Found ation >60 mL/mi n/1.7 3m2 - Maru l <60 mL/mi n/1.7 3m2 - Chron ic Kidne y Disea se <15 mL/mi n/1.7 3m2 - Kidne y Failu re Not Available [address], [address], 10/26/2020 09:07:52 10/25/2010/26/2020 CMP, serum or plasm a GFR - if 121.3 mL/mi n For Afric an Ameri can patie nts: Resul ts Multi plied by 1.21 Not Available [address], [address], 10/26/2020 09:07:52 10/25/2010/26/2020 CMP, serum or plasm a sodium 137 mmol/ L 136-14 5 Not Available [address], [address], 10/26/2020 09:07:52 10/25/20 20 10/26/2020 CMP, serum or plasm a potassium 3.8 mmol/ L 3.5-5. 1 Not Available [address] [place], [address], 10/26/2020 09:07:52 10/25/2010/26/2020 CMP, serum or plasm a chloride 100 mmol/ L 96-107 Not Available [address], [address], 10/26/2020 09:07:52 10/25/2010/26/2020 CMP, serum or plasm a anion gap 8.1 5.0-15 .0 Not Available [address], [address], 10/26/2020 09:07:52 10/25/2010/26/2020 CMP, serum or plasm a CO2 29 mmol/ L 21-32 Not Available [address], [address], 10/26/2020 09:07:52 10/25/2010/26/2020 CMP, serum or plasm a calcium 9.4 mg/dL 8.5-10 .3 Not Available [address], [address], 10/26/2020 09:07:52 10/25/2010/26/2020 CMP, serum or plasm a total protein 7.5 g/dL 6.4-8. 2 Not Available [address], [address], 10/26/2020 09:07:52 10/25/2010/26/2020 CMP, serum or plasm a albumin 4.0 g/dL 3.4-5. 0 Not Available [address], [address], 10/26/2020 09:07:52 10/25/2010/26/2020 CMP, serum or plasm a globulin 3.5 g/dL Not Available [address], [address], 10/26/2020 09:07:52 10/25/2010/26/2020 CMP, serum or plasm a A/G 1.1 ratio 0.8-2. 0 Not Available [address], [address], 10/26/2020 09:07:52 10/25/20 20 10/26/2020 CMP, serum or plasm a total bilirubin 0.20 mg/dL 0.00-1 .00 Not Available [address], [address], 10/26/2020 09:07:52 10/25/2010/26/2020 CMP, serum or plasm a AST 16 U/L 0-37 Not Available [address], [address], 10/26/2020 09:07:52 10/25/2010/26/2020 CMP, serum or plasm a ALT 25 U/L 6-63 Not Available [address], [address], 10/26/2020 09:07:52 10/25/2010/26/2020 CMP, serum or plasm a alk. phos. 76 U/L 50-136 Not Available [address], [address], 10/26/2020 09:07:52 10/25/2010/26/2020 bilir ubin, direc t, serum or plasm a direct bilirubin 0.10 mg/dL 0.00-0 .30 Not Available [address], [address], 10/26/2020 09:07:53 10/25/20 20 10/28/2020 gamma -glut amyl trans feras e (ggt) , serum GGT 13 U/L 3-50 normal Not Available [facility] [facility] [address] [place] [address] B, [place], [address], 10/28/2020 12:27:22 10/25/2010/28/2020 HIV 1+2 Ab + HIV1 p24 Ag, quant itati ve immun oassa y, serum HIV Ag/Ab, 4TH gen NON-RE ACTIVE non-re active normal HIV-1 antig en and HIV-1 /HIV- 2 antib odies were not detec jone. There is no labor atory evide nce of HIV infec tion. PLEAS E NOTE: This infor matio n has been discl osed to you from recor ds whose confi denti ality may be prote cted by state law. If your state requi res such prote ction , then the state law prohi bits you from [facility] discl osure of the infor matio n witho ut the speci fic writt en conse nt of the perso n to whom it perta ins, or as other agudelo permi tted by law. A gener al autho rizat ion for the relea se of medic al or other infor matio n is NOT suffi cient for this purpo se. For addit ional infor matio n pleas e refer to http: //[facility] catlinda sen.que stdia gnost ics.c om/fa q/FAQ 106 (This link is being provi ded for infor matio nal/ educa justina l purpo ses only. ) The perfo rmanc e of this assay has not been clini deacon valid ated in patie nts less than 2 years old. Not Available [facility] [address], [address], 10/28/2020 12:27:25 10/25/2010/28/2020 hepat itis C virus Ab, serum hepatitis C antibody REACTI VE non-re active abnormal Not Available [facility] [address], [address], 10/28/2020 12:27:26 10/25/2010/28/2020 hepat itis C virus Ab, serum signal to cut-off 27.80 <1.00 high HCV antib lorenzo was react jessica. The sampl e will be teste d for HCV RNA by a Nucle ic Acid Ampli ficat ion Test (NAAT ) to deter mine if the patie nt has a curre nt activ e infec tion. Not Available [facility] [address] [place], [place], [address], 10/28/2020 12:27:26 10/25/20 20 10/28/2020 hepat itis C virus Ab, serum HCV RNA, quantitative real time PCR <15 NOT DETECT ED IU/mL not detect ed normal Not Available [facility] [address] [place], [place], [address], 10/28/2020 12:27:26 10/25/20 20 10/28/2020 hepat itis C virus Ab, serum HCV RNA, quantitative real time PCR <1.18 NOT DETECT ED log_I U/mL not detect ed normal HCV RNA is not detec jone. There is no labor atory evide nce of a curre nt activ e HCV infec tion. This patte rn of resul ts (unde tecta ble HCV RNA combi paul with react jessica HCV antib lorenzo) could be consi stent with a resol michaelle past infec tion if the clini lucretia histo ry is pedro tible with previ ous HCV expos ure. Howev er, if no previ ous expos ure is suspe cted, the react jessica HCV antib lorenzo could be a biolo gical false posit jessica resul t. Not Available [facility] [address], [place], [address], 10/28/2020 12:27:26 10/25/2010/28/2020 hepat itis C virus Ab, serum Unknown Analyte This test was perfo rmed using Real- Time Polym erase Chain React ion. Repor table Range : 15 IU/mL to 100,0 00,00 0 IU/mL (1.18 Log IU/mL to 8.00 Log IU/mL ). The ambar tical perfo rmanc e ninfa cteri stics of this assay have been deter mined by [facility] veronique beard. The modif icati ons have not been clear ed or appro michaelle by the FDA. This assay has been valid ated pursu ant to the CLIA regul ation s and is used for clini lucretia purpo ses. For more rosa sen on this test, go to: http: //[facility] stdia gnost ics.c om/fa q/FAQ 22v1 (This link is being provi ded for infor matio nal/ educa justina l purpo ses only. ) This assay is inten ded for use as an aid in the diagn osis of HCV infec tiwisam and the manag ement of HCV infec jone randolph nts under going anti- viral thera py. Not Available [facility] [address], [address], 10/28/2020 12:27:26 10/25/20 20 10/28/2020 HBsAg (hepa titis B surfa ce Ag), serum hepatitis B surface antigen NON-RE ACTIVE non-re active normal Not Available [facility] [address], [address], 10/28/2020 12:27:27 10/25/20 20 10/28/2020 hepat itis A Ab, total , serum hepatitis A Ab, total REACTI VE non-re active abnormal For addit ional makayla altman refer to http: //[facility]ia gnost [employer].c om/fa q/FAQ 202 (This link is being provi ded for infor matio nal/ educa justina l purpo ses only. ) Not Available [facility] [address], [address], 10/28/2020 12:27:27 Result Notes None recorded. Problems Name Problem SNOMED Code Status Onset Date Resolution Date Notes Provider Name and Address Organization Details Recorded Time Major depressiv e disorder 567141360 Active 2015 Bee Pressley PA-C [address] [place] [address], [place], [address] , [facility] 6 13:58:17 Attention deficit hyperacti vity disorder 155657118 Active 2015 CSRP stimulant agreement was signed 08/09/2019 LYNN Granda [address] [place], [place] [address] [place], [address], [facility] 9 06:16:47 Chronic low back pain 460857343 Active 2016 Bee Pressley PA-C [address] [place], [place] [address] [place], [address], [facility] 7 09:27:05 Serum thyroid stimulati ng hormone level outside reference range 945061535 Active 2016 Bee Pressley PA-C [address] [place], [place] [address] [place], [address], [facility] 7 08:02:01 Opioid dependenc e 95214221 Active 2017 Phoebe Cuellar [place] [facility] 8 11:19:32 Iron deficienc y 69154723 Active 2018 VANIA Pitts [address] [place], [place] [address] [place], [address], [facility] 9 08:35:21 History of hepatitis C 971714463997 01 Active 2019 see 10/2020 labs ordered by LYNN Flores [address] [place], [place] [address] [place], [address], [facility] 0 14:02:42 Bipolar disorder 67254135 Active 2019 Bee Pressley PA-C [address] [place], [place] [address] [place], [address], [facility] 0 13:36:36 Problem Notes None recorded. Procedures Surgical History Date Name Laterality Status Provider Name and Address Organization Details Recorded Time 04/24/20 22 Smoking cessation counseling cancelled [facility] 04/24/2022 10:00:39 04/24/20 22 Alcohol use screening cancelled [facility] 04/24/2022 08:52:16 04/24/20 22 Cardiovascular disease risk reduction counseling cancelled [facility] 04/24/2022 08:52:16 04/24/20 22 Medicare Annual Wellness Visit cancelled [facility] 04/24/2022 08:52:16 07/26/20 19 Smoking cessation counseling completed Elizabeth Kidd RN [facility] 07/26/2019 09:37:26 07/26/20 19 Carbon Monoxide Testing completed Elizabeth Kidd RN [facility] 07/26/2019 09:37:26 06/21/20 19 Smoking cessation counseling completed Phoebe Cuellar MA [facility] 06/21/2019 10:03:53 06/21/20 19 Carbon Monoxide Testing completed Phoebe Cuellar MA [facility] 06/21/2019 10:03:53 07/26/20 18 Smoking cessation counseling completed Phoebe Cuellar MA [facility] 07/26/2018 13:41:18 07/26/20 18 Carbon Monoxide Testing completed Phoebe Cuellar MA [facility] 07/26/2018 13:41:19 10/12/20 17 Smoking cessation counseling completed Federica Hansen MA [facility] 10/12/2017 12:55:32 09/08/20 17 Smoking cessation counseling completed Phoebe Cuellar MA [facility] 09/08/2017 10:30:51 09/08/20 17 Carbon Monoxide Testing completed Phoebe Cuellar MA [facility] 09/08/2017 10:30:51 07/13/20 17 Smoking cessation counseling completed Karina Patel MA [facility] 07/13/2017 14:26:13 07/13/20 17 Carbon Monoxide Testing completed Karina Patel MA [facility] 07/13/2017 14:26:14 06/11/20 17 Smoking cessation counseling completed Federica Hansen MA [facility] 06/11/2017 10:33:16 08/11/20 16 Smoking cessation counseling completed Phoebe Cuellar MA [facility] 08/11/2016 13:10:28 08/11/20 16 Carbon Monoxide Testing completed Phoebe Cuellar MA [facility] 08/11/2016 13:15:58 01/07/20 16 Smoking cessation counseling completed Phoebe Cuellar MA [facility] 01/07/2016 13:57:52 Imaging Results None recorded. Procedure Notes None recorded. Medical Equipment None Reported. Allergies Allergen ID Allergen Name Allergen Category Reaction Reaction Severity Criticality Documentation Date Start Date Code Code System Note Provider Name and Address Organization Details Recorded Time 999235 Substance with sulfonami de structure and antibacte rial mechanism of action (substanc e) medicatio n rash Not available Not available 01/07/2016 53580 8003 SNOMED Phoebe ROSA Cuellar [facility] 6 13:54:58 Medications Name Sig Start Date Stop Date Status Note LastModified by Organization Details LastModified Time lamotrigi ne 150 mg tablet TAKE 1 TABLET BY MOUTH EVERY DAY DIRECTED active Not Available Not Available No t Available clonidine HCl 0.1 mg tablet TK 1 TO 2 TS PO HS 06/11 completed Not Available Not Available Not Available doxycycli ne hyclate 100 mg capsule take 1 capsule by mouth every 12 hours 08/11 completed Not Available Not Available Not Available Vitamin B-6 25 mg tablet TK 1 T PO TID 06/11 completed Not Available Not Available Not Available Tab-A-Vit e tablet take 1 tablet by mouth once daily 2016 active Not Available Not Available Not Avai lable azithromy yair 250 mg tablet 02/03 completed Not Available Not Available Not Available nicotine (polacril ex) 2 mg gum CHEW 1 PIECE OF GUM EVERY 2 HOURS BY MOUTH active Not Available Not Available No t Available gabapenti n 400 mg capsule TAKE 1 CAPSULE FOUR TIMES A DAY 06/11 completed Not Available Not Available Not Available venlafaxi ne ER 150 mg capsule,e xtended release 24 hr take 1 capsule by mouth twice a day 08/11 completed Not Available Not Available Not Available olanzapin e 10 mg tablet 10 MG (1 TABLET) BY MOUTH BEDTIME active Not Available Not Available No t Available lithium carbonate ER 300 mg tablet,ex tended release TAKE 1 TABLET BY MOUTH IN THE MORNING AND 2 TABLETS IN THE EVENING active Not Available Not Available No t Available oxcarbaze pine 300 mg tablet take 1 tablet by mouth three times a day 08/11 completed Not Available Not Available Not Available ondansetr on 8 mg disintegr ating tablet DISSOLVE 1 T PO TID PRF NAUSEA/V OMITING 06/21 completed Not Available Not Available Not Available trazodone 100 mg tablet TAKE 1 TABLET BY MOUTH AT BEDTIME 02/24 completed Not Available Not Available Not Available Concerta 54 mg tablet,ex tended release TAKE 1 TABLET BY MOUTH EVERY MORNING active Not Available Not Available No t Available cephalexi n 500 mg capsule take 1 capsule by mouth four times a day 08/11 completed Not Available Not Available Not Available Concerta 36 mg tablet,ex tended release TK 1 T PO QD 07/21 completed Not Available Not Available Not Available pramipexo le 0.125 mg tablet take 1 tablet by mouth twice a day if needed for RESTLESS LEGS 08/11 completed Not Available Not Available Not Available gabapenti n 300 mg capsule TAKE 1 CAPSULE BY MOUTH FOUR TIMES DAILY active Not Available Not Available No t Available Nix Creme Rinse 1 % topical liquid NOE TOPICALL Y A SINGLE DOSE UTD. MAY REPEAT IN 7 DAYS 08/23 completed Not Available Not Available Not Available zolpidem 5 mg tablet TAKE 1 TABLET BY MOUTH AT BEDTIME NEEDED FOR INSOMNIA active Not Available Not Available No t Available lorazepam 1 mg tablet TAKE 1 TABLET BY MOUTH TWICE A DAY NEEDED FOR ANXIETY 02/24 completed Not Available Not Available Not Available ibuprofen 600 mg tablet TK 1 T PO TID WF 06/28 completed Not Available Not Available Not Available cefuroxim e axetil 500 mg tablet TAKE 1 TABLET BY MOUTH TWICE DAILY FOR 7 DAYS 07/16 completed Not Available Not Available Not Available perphenaz ine 8 mg tablet TAKE 1 TABLET BY MOUTH 3 TIMES A DAY NEEDED FOR ANXIETY/ AGITATIO N 02/24 completed Not Available Not Available Not Available lamotrigi ne 100 mg tablet TK 1 T PO ONCE A DAY 06/11 completed Not Available Not Available Not Available chlorprom azine 50 mg tablet TAKE 1 TABLET BY MOUTH 3 TIMES A DAY NEEDED FOR AGITATIO N active Not Available Not Available No t Available metoclopr amide 10 mg tablet TK 1 T PO TID BEFORE MEALS AND BEDTIME PRN FOR VOMITING 06/11 completed Not Available Not Available Not Available nicotine 7 mg/24 hr daily transderm al patch APPLY 1 PATCH TOPICALL Y TO THE SKIN EVERY DAY active Not Available Not Available No t Available hydroxyzi ne pamoate 25 mg capsule Take 1 capsule 4 times a day by oral route as needed. 02/24 completed as needed for withdraw al or anxiety Not Available Not Available Not Available Daily-Vit e tablet TK 1 T PO QD active Not Available Not Available No t Available buprenorp deshawn HCl 8 mg sublingua l tablet take 2 tablets under the tongue once daily 07/13 completed Not Available Not Available Not Available Jolivette 0.35 mg tablet TK 1 T PO D 06/11 completed Not Available Not Available Not Available ferrous gluconate 324 mg (36 mg iron) tablet Take 1 tablet by mouth every day 06/11 completed Not Available Not Available Not Available ProAir HFA 90 mcg/actua tion aerosol inhaler INHALE 1 PUFF BY MOUTH FOUR TIMES DAILY NEEDED FOR WHEEZING active Not Available Not Available No t Available ferrous gluconate 324 mg (38 mg iron) tablet TAKE 1 TABLET BY MOUTH EVERY DAY active Not Available Not Available No t Available Vyvanse 50 mg capsule TAKE 1 CAPSULE BY MOUTH EVERY DAY IN THE MORNING active Not Available Not Available No t Available venlafaxi ne ER 150 mg tablet,ex tended release 24 hr take 2 tablets by mouth once daily 02/24 completed Not Available Not Available Not Available Suboxone 8 mg-2 mg sublingua l film DISSOLVE 1 FILM UNDER THE TONGUE 2 TIMES DAILY active Not Available Not Available No t Available Suboxone 4 mg-1 mg sublingua l film dissolve 1 FILM under the tongue once daily active Not Available Not Available No t Available PrePlus 27 mg iron-1 mg tablet TK 1 T PO D 05/13 completed Not Available Not Available Not Available Harvoni 90 mg-400 mg tablet TK 1 T PO QD 05/13 completed Not Available Not Available Not Available Vol-Plus 27 mg iron-1 mg tablet TK 1 T PO D 07/21 completed Not Available Not Available Not Available Narcan 4 mg/actuat ion nasal spray use INTRANAS ALLY as directed ONCE FOR SUSPECTE D OVERDOSE 07/26 completed Not Available Not Available Not Available Vitals Date Recorded Body height Provider Name an d Address Organization Details Last Updated DateTime 03/29/2020 158.75 cm Phoebe Cuellar [place] - [facility] 03/29/2020 14:16:06 Date Recorded Body height Provider Name an d Address Organization Details Last Updated DateTime 07/09/2020 158.75 cm Phoebe Cuellar MA [facility] 07/09/2020 11:15:15 Date Recorded Body height Body mass index (BMI) Body weight Provider Name and Address Organization Details Last Updated DateTime 07/26/2020 158.75 cm 27 kg/m2 54992.86 g Phoebe Cuellar MA [facility] 07/26/2020 13:21:53 Date Recorded Body height Body mass index (BMI) Body weight Provider Name and Address Organization Details Last Updated DateTime 08/23/2020 158.75 cm 27 kg/m2 25718.[address] CMA [facility] 08/23/2020 11:12:54 Date Recorded Body height Body mass index (BMI) Body weight Provider Name and Address Organization Details Last Updated DateTime 10/29/2020 158.75 cm 27.5 kg/m2 48574.63 g Phoebe Cuellar MA [facility] 10/29/2020 13:16:20 Date Recorded Body height Body mass index (BMI) Body weight Provider Name and Address Organization Details Last Updated DateTime 02/14/2021 158.75 cm 28.8 kg/m2 70311.78 g Phoebe Cuellar MA [facility] 02/14/2021 11:31:41 Social History Question Answer Notes LastModified by Organizat ion Details LastModified Time Tobacco Smoking Status [facility] 11:10:41 What Is Your Level Of Alcohol Consumption? Occasional 1 Or 2x A Year Information not available 01/07/2016 Do You Wear A Helmet When Biking? No Information not available 01/07/2016 What Is Your Level Of Caffeine Consumption? Moderate 2 Cups Coffee / Day Information not available 01/07/2016 How Much Tobacco Do You Chew? None Information not available 01/07/2016 What Type Of Diet Are You Following? VEGETARIAN Information not available 01/07/2016 Do You Or Have You Ever Used E-cigarettes Or Vape? Former User Of Electronic Cigarettes nschlosser Information not available 08/23/2020 Education 12 Information no t available 01/07/2016 What Is Your Occupation? Unemployed Information not available 01/07/2016 Are There Any Guns Present In Your Home? No Information not available 01/07/2016 Live Alone Or With Others? With Others Lives In Senior Living Through [facility]. Information not available 01/07/2016 Does The Patient Have Difficulty Speaking Indian? No Information not available 01/07/2016 Does The Patient Have Difficulty Reading Indian? No Information not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 13:43:27 Attention deficit hyperactivity disorder, predominantly inattentive type [id number] F90.0 Pt is on concerta. last RX 08/24/2020 . Sts Concerta seems to be working she is doing good . Feeling good, no relapses (has not bought any adderall) will follow up 28 days. sooner if any concerns/c hanges. It has been 56 days since her last fill date, pt has not taken every day, Takes it most days but may skip some weekends or chill days Bipolar disorder [id number] F31.9 doing well, will be signing on with therapist at [facility] in [facility] Chronic low back pain 27 [id number] M54.5 gabapentin 300 mg QID seems to be helping low back pain [id number] Bee Pressley PA-C , [facility], OFF[address] [facility] [place] [address] 02/14/2021 11:30:28 02/14/2021 13:34:28 Attention deficit hyperactivity disorder, predominantly inattentive type [id number] F90.0 Pt is on concerta. last RX for 14 days . Sts Concerta seems to be working she is doing good . Feeling good, no relapses (has not bought any adderall) will follow up 28 days. sooner if any concerns/c hanges. her last fill date, (prior to 02/06) was 12/13. She sts she had COVID and was ill and did not need medication . pt has not taken every day, Takes it most days but may skip some weekends or chill days Will follow up in 28 days, in office, new CSRP contract will be signed. EMR/LABS/M EDS/SALES PRODUCT SPECIALIST all reviewed Health Concerns Section Related Observation LastModified by Organization Detai ls LastModified Time None Recorded Concern Status LastModified by Organization Details LastModified Time None Recorded Advance Directives Directive None Recorded Payers Encounter Date Sequence Insurance Name Policy Number Policy Willams Covered Member ID Willams Member ID Guarantor Name 03/29/2020 1 [place] 2023 - [facility] (MEDICAID) Ilana Ariasly [id number] Ilana Lively 07/26/2020 1 [place] 2023 - [facility] (MEDICAID) Ilana Lively [id number] Ilana Lively 08/23/2020 1 [place] 2023 - [facility] (MEDICAID) Ilana Lively [id number] Ilana Lively 10/29/2020 1 [place] 2023 - [facility] (MEDICAID) Ilanalary Newton [id number] Ilana Newton 02/14/2021 1 [place] [facility] PRIOR TO 02/14/2023 - [facility] (MEDICAID) Ilana Newton [id number] Ilana Newton Notes Date Note Type Note Provider Name and Address Organization Details Recorded Time 0 text/html a/vmg-Stimulant TemplateReported bypatient.Stimulant MedicationsMedication that patient is using concerta; Timing of medication :morning; Days per week patient using medications 7; Pills used each month 30; sts concerta seems. to work sts she is doing well. BenefitsFocus or function has improved Concernsnon compliant at times , but has not bought any adderall since her last prescription. Patient agreed to this visit via phone or secure telehealth platform due to the COVID -19 pandemic. Patient understands this is a scheduled visit and the usual procedures with regard to billing and confidentiality apply. phone conservation. 15 min Patient was notified that the provider location is home Patient location: home During the visit the patient? s medical history and medical record were reviewed. The patient was notified to call our office for worsening or urgent symptoms, and to schedule an in person visit if necessary. Has not been able to get in contact with Ab Onofre. will try again. Bee Pressley PA-C [address] [place] [address], [phone], [facility] 03/29/2020 14:29:57 0 text/html a/vmg-Stimulant TemplateReported bypatient.Stimulant MedicationsMedication that patient is using concerta; Timing of medication :morning; Days per week patient using medications 7; Pills used each month 30; concerta last filled 05/28/20 for 28 days, it has been 59 days. She has run out but sts she was sick for about 3 weeks and did not take them while she was sick so had some and spread it out, but now she is out. She sts she is otherwise doing well, has NOT bought anything on the street, no adderall. BenefitsFocus or function has improved Medication RisksPatient experiences appetite suppression no.; she has had virtual visits by phone, unable to check weight Concernsnon compliant at times , but has not bought any adderall since her last prescription.Notes:she has been with out a refill since 05/28/20 at which time she received 28 days. She has been spreading them out, not taking any when she was ill for 2-3 weeks. Time for intake: {{1 2 3 4 5* 6 7 8 9 10 11 12 13 14 15 16 17 18 19 2 0 21 22 23 24 25}} minutes. Patient agreed to this visit via phone or secure telehealth platform due to the COVID -19 pandemic. Patient understands this is a scheduled visit and the usual procedures with regard to billing and confidentiality apply. phone conservation. 15 min Patient was notified that the provider location is home Patient location: home During the visit the patient? s medical history and medical record were reviewed. The patient was notified to call our office for worsening or urgent symptoms, and to schedule an in person visit if necessary. She just started to see a therapist at [facility] Bee Pressley PA-C [address] [place] [address], [phone], [facility] 07/26/2020 15:01:59 0 text/html Time for intake: {{1 2 3* 4 5 6 7 8 9 10 11 12 13 14 15 16 17 18 19 2 0 23 24 25}} minutes.35 year old female patient presents for a telemedicine visit via phone for ADHD medication management. She has been taking concerta for ADHD since at least 2014. [facility] stimulant contract was signed 08/09/2019. 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 Lives with her 4 year old son Tomás and 12 year old daughter Isaura.Her mother helps with babysitting. Her 08/09/2019 UDS was consistent with disclosed Adderall. Her UDS prior to that on 06/28/2019 was consistent with Rx concerta, as were the 06/21/2019, 05/13/2019 and 03/04/2019 UDS. MassPAT checked. No red flags.She filled a 28 day script of concerta 54 mg ER on 07/26/2020 so she is due for refill today. Denies appetite suppression or overstimulation or difficulty sleeping with concerta. BP during 12/13/2019 office visit was well controlled at 108/70 and pulse was 92. LYNN Granda [address] [place], [phone], [facility] 08/23/2020 11:27:58 0 text/html a/vmg-Stimulant TemplateReported bypatient.Stimulant MedicationsMedication that patient is using concerta; Timing of medication :morning; Days per week patient using medications 7; Pills used each month 30; concerta last yghecf38/09/20 for 28 days, it has been 56 days. Doing well, takes them most days but may miss weekends or chill days BenefitsFocus or function has improved Medication RisksPatient experiences appetite suppression no.; she has had virtual visits by phone, unable to check weight Concernsnon compliant at times , but has not bought any adderall since her last prescription. Time for intake: {{1 2 3 4* 5 6 7 8 9 10 11 12 13 14 15 16 17 18 19 2 0 21 22 23 24 25}} minutes. Patient agreed to this visit via phone or secure telehealth platform due to the COVID -19 pandemic. Patient understands this is a scheduled visit and the usual procedures with regard to billing and confidentiality apply. phone conservation. 15 min Patient was notified that the provider location is home Patient location: home During the visit the patient? s medical history and medical record were reviewed. The patient was notified to call our office for worsening or urgent symptoms, and to schedule an in person visit if necessary. She just switched over to [facility] in [facility] who offers therapy and psychiatry. Bee Pressley PA-C [address] [place] [address], [phone], [facility] 10/29/2020 13:43:24 1 text/html a/vmg-Stimulant TemplateReported bypatient.Stimulant MedicationsMedication that patient is using concerta; Timing of medication :morning; Days per week patient using medications 7; Pills used each month 30; concerta last tiegaa18/09/20 for 28 days, it has been 56 days. Doing well, takes them most days but may miss weekends or chill days BenefitsFocus or function has improved Medication RisksPatient experiences appetite suppression no.; she has had virtual visits by phone, unable to check weight Concernsnon compliant at times , but has not bought any adderall since her last prescription. Time for intake: {{1 2 3 4* 5 6 7 8 9 10 11 12 13 14 15 16 17 18 19 2 0 21 22 23 24 25}} minutes. Patient agreed to this visit via phone or secure telehealth platform due to the COVID -19 pandemic. Patient understands this is a scheduled visit and the usual procedures with regard to billing and confidentiality apply. phone conservation. 15 min Patient was notified that the provider location is home Patient location: home During the visit the patient? s medical history and medical record were reviewed. The patient was notified to call our office for worsening or urgent symptoms, and to schedule an in person visit if necessary. She just switched over to [facility] in [facility] who offers her suboxxone and therapy and psychiatry.She has been without concerta for a time, last picked up 12/13/20, she did have COVID,she is not drinking ETOH, or Marijuana , no other drugs.She reached out to us to restart her meds, I gave her a 14 day supply she picked up on February 06, 2021, today is day 8 Bee Pressley PA-C [address] [place], [phone], [facility] 02/14/2021 12:08:49 OBGyn Episode No OBEpisode recorded.
--- OUTSIDE RECORDS SUMMARY | 2024-12-19 07:43 | XMS_ITS | Encounter Summary ---
Author Organization [facility] Address [address] [place] [address] Care Team Providers Care Saturator Name Role Phone Ab Hope Primary Care Provider [phone] Encounter Details Date Type Department Care Team (Late st Contact Info) Description 11/24/2024 Interim Notes [facility] [address] [place] [phone] Gabriela Alcantar [address] [place] [address] [phone] Social History Tobacco Use Types Packs/Day Years [...] as of this encounter Progress Notes * Gabriela Alcantar - 11/24/2024 12:00 PM EST Pt written for boric acid supp. Not covered by insurances. Vouchering today for pt. documented in this encounter Plan of Treatment Not on file documented as of this encounter Visit Diagnoses Not on filedocumented in this encounter Care Teams Saturator Relationship Specialty Start Date End Date Ab Hope PA [address] [place] [phone] PCP - General FAMILY MEDICINEKIM 11/14/24 documented as of this encounter
--- NOTE | 2024-12-19 07:45 | ED_ITS ---
HPI - General Adult General Chief complaint: Skin/Abscess/Foreign Body Stated complaint: Itchy Time Seen by Provider: 12/19/24 07:45 History of Present Illness ED Provider: Reese CONNELL narrative: The patient is a 39-year-old woman who says she is homeless. She says that she had taken snf in our emergency room waiting room last night. She had found a blanket in the emergency room and was keeping herself warm with a blanket. This morning she feels she has developed several areas of redness and itchiness on multiple sites of her body, mostly on her extremities. She also feels generally itchy all over. Related Data Previous Rx's ?Medication ?Instructions ?Recorded ibuprofen 600 mg tablet 600 mg PO Q6H PRN fever or pain 12/17/24 #30 tabs meclizine 25 mg tablet 25 mg PO TID PRN dizziness #20 tabs 12/17/24 permethrin 5 % topical cream 1 appl topical Q14D 2 doses #60 12/19/24 grams Allergies Allergy/AdvReac Type Severity Reaction Status Date / Time Sulfa (Sulfonamide Allergy Unknown RASH Verified 12/19/24 07:20 Antibiotics) [SULFA (SULFONAMIDE ANTIBIOTICS)] Review of Systems 2 Review of Systems: Yes all other systems are reviewed and are negative [facility] Social History Social History Advance Directives: No Advance Directives Information Provided: Yes Do you have a plan to hurt others: No Plan Physical Exam ED Vital Signs: Vital Signs - 24 hr 12/19/24 07:18 12/19/24 08:21 Temperature 97.1 F 97.1 F Pulse Rate 76 76 Respiratory Rate 18 18 Blood Pressure 95/34 L 95/34 L Pulse Oximetry 98 98 Oxygen Delivery Method Room Air Room Air BMI result Body Mass Index 21.9 Const Other: The patient is awake and alert with normal mental status. She looks reasonab ly well groomed. She is complaining of being itchy but does not seem acutely ill otherwise. HENMT Other: I do not appreciate any abnormal skin lesions on the face or the scalp. Mucous membranes are moist. Posterior pharynx is normal. Eyes General: appearance normal, both eyes and all related structures Neck Neck: Yes full ROM Resp Effort & Inspection: normal respiratory effort Auscultation: clear to auscultation bilaterally Cardio Rate: regular rate Rhythm: regular rhythm Heart sounds: S1 normal heart sound present and S2 normal heart sound present Skin Other: Patient has a few lesions on her extremities. The most obvious is on the foot. This is on the left foot, the dorsum of the foot. There is an erythematous lesion that looks like a bug bite. There are some similar lesions on the arms. I do not see any intertriginous lesions between the toes or the fingers. No lesions on the back or on the face. Neuro Other: The patient is awake and alert with normal mental status. Cranial nerves are intact. She moves her extremities normally and appropriately. She is grossly neurologically intact. Extrem Other: Patient has some skin lesions on her extremities which have the appearance of bug bites. Medical Decision Making Medical Decision Making MDM Narrative: The patient is a 39-year-old woman who is homeless. She seems to split her time between [place] in this area. She is here stating that she spent the night in our emergency room waiting room for snf. She says that she used a blanket that was in the waiting room that she has now developed itchy skin lesions on her extremities. On physical exam these seem to be what I believe are both bites. My suspicion for scabies is low. She does not seem toxic. These could be flea bites. These could be bug bites. She will be given a prescription for permethrin. She was given information about local shelters. Discharge Plan Discharge Clinical Impression: Bug bites Patient Disposition: Home, Self-Care Additional Instructions: I am not certain what might be causing what seemed to be itchy bug bites. I do not think this looks like scabies. Nevertheless I will provide a prescription for permethrin cream. Please try to find a place where you can take a shower. Washing dry your skin thoroughly. Apply thin layer of the cream over your entire body including your scalp, hairline, and forehead. Leave this on for 8-14 hours and then wash it off. Use approximately half of the amount on this 1st application. If you wish to repeat this you may repeat this in 7 days. Please work on getting a primary care doctor. Return to the emergency room if worse. Prescriptions: New permethrin 5 % cream 1 appl topical Q14D Qty: 60 0RF Rx Instructions: apply second treatment 14 days after first treatment if live lice remain No Action meclizine 25 mg tablet 25 mg PO TID PRN (Reason: dizziness) Qty: 20 0RF ibuprofen 600 mg tablet 600 mg PO Q6H PRN (Reason: fever or pain) Qty: 30 0RF Interventions: ED Discharge Assessment Last Done: 12/19/24 08:21 Discharge Date/Time: 12/19/24 08:22 Print Language: Icelandic
[2024-12-19 08:21] VITALS: BP 95/34; PULSE 76; RESP 18; TEMP 36.2; O2SAT 98
== END 2024-12-19 08:22 | disposition home or self-care (01) ==
PROVIDERS: Emergency Provider Emergency Medicine
DX: L29.9 Pruritus, unspecified (principal); Z59.00 Homelessness unspecified
CPT/HCPCS: 99282; 99283

== ENCOUNTER 2024-12-21 07:28 | Emergency (ER) | payer OTHER, SELFPAY ==
--- NOTE | 2024-12-21 | ECG_ITS ---
Test Reason : dizzy Blood Pressure : */* mmHG Vent. Rate : 94 BPM Atrial Rate : 94 BPM P-R Int : 146 ms QRS Dur : 82 ms QT Int : 346 ms P-R-T Axes : 67 58 59 degrees QTcB Int : 432 ms Normal sinus rhythm Possible Left atrial enlargement Borderline ECG No previous ECGs available Referred By: Generic ED Physician Electronically Signed By: Yordan Massey
--- NOTE | ~2024-12-21 | XR_ITS ---
EXAMINATION: XR CHEST CLINICAL INFORMATION: dizzy, cough COMPARISON: None available. TECHNIQUE: Frontal view of the chest was obtained. FINDINGS: The lungs are expanded with patchy consolidation right upper lobe. Rest of the lungs are clear. The heart size and pulmonary vascularity is normal. No gross bony abnormality seen. XR/XR chest 1V IMPRESSION: Right upper lobe consolidation. Electronically signed by: Gray Zimmerman MD 12/21/2024 08:56 AM [facility]
[2024-12-21 07:38] VITALS: BP 84/51; PULSE 122; RESP 20; TEMP 38.4; O2SAT 97; BMI 21.9
--- OUTSIDE RECORDS SUMMARY | 2024-12-21 07:52 | XMS_ITS | Clinical Summary ---
Author Organization [facility] Address [address] [place] [address] Care Team Providers Care Oil Deliverer Name Role Phone Patient, Has No Pcp [...] htat she will have to go to [facility] for further refills if she is going to stay in [place]. Gave her the cotact info for that office. Uncomplicated opioid dependence 02/08/2024 Assessment & Plan (04/19/2024 10:02 AM EDT): Rx sent today; advised re: follow up at [facility] for further refills. Social History Tobacco [...] patient's age to complete this topic [facility] Care Teams Oil Deliverer Relationship Specialty Start Date End Date Patient, Has No Pcp Or Ref DO NOT EDIT THIS RECORD VIA PROVIDER ON THE FLY PCP - General Automotive Brake Adjuster 02/14/24
--- OUTSIDE RECORDS SUMMARY | 2024-12-21 07:52 | XMS_ITS | Data Portability ---
Author Organization [facility], , [facility] Address [address] [place] [address] Care Team Providers Care [employer] Name Role Phone YNES PRADHAN Primary Care [...] 54 mg tablet,ext ended release 2019 [facility] #[id number], [address], [place], [id number], 0 14:28:58 gabapentin 300 mg capsule 2019 020 [facility] #[id number], [address], [place], [id number], 0 13:37:30 Concerta 54 mg tablet,ext ended release 2019 020 [facility] #[id number], [address], [place], [id number], 0 13:37:29 Concerta 54 mg tablet,ext ended release 2019 020 INTERFACE [facility] #[id number], [address], [place], [id number], 0 11:27:38 gabapentin 300 mg capsule 2019 020 INTERFACE [facility] #[id number], [address], [place], [id number], 0 13:39:14 lamotrigin e 150 mg tablet 2019 020 INTERFACE [facility] #[id number], [address], [place], [id number], 0 13:39:13 Concerta 54 mg tablet,ext ended release 2019 020 INTERFACE [facility] #98345, [address], [place], [id number], 0 13:39:13 Concerta 54 mg tablet,ext ended release 2020 021 [id number], [address], [place], [id number], 1 11:51:11 Patient TargetsNo targets recorded. Patient InstructionsNo instructions recorded. Reason for Referral None Reported. Results Created Date Observation Date Name Description Value Unit Range Abnormal Flag Note LastModifiedBy Organization Detail LastModifiedTime 10/25/20 20 10/25/2020 CBC WBC 5.63 K/? ? ?L 3.98-1 0.04 Not Available [address], [address], 10/25/2020 17:15:20 10/25/20 20 10/25/2020 CBC RBC 4.13 M/? ? ?L 3.93-5 .22 Not Available [address], [address], 10/25/2020 17:15:20 10/25/20 20 10/25/2020 CBC HGB 12.4 g/dL 11.2-1 5.7 Not Available [address], [address], 10/25/2020 17:15:20 10/25/20 20 10/25/2020 CBC HCT 36.7 % 34.1-4 4.9 Not Available [address], [address], 10/25/2020 17:15:20 10/25/20 20 10/25/2020 CBC MCV 88.9 fL 79.4-9 4.8 Not Available [address], [address], 10/25/2020 17:15:20 10/25/20 20 10/25/2020 CBC MCH 30.0 pg 25.6-3 2.2 Not Available [address], [address], 10/25/2020 17:15:20 10/25/20 20 10/25/2020 CBC MCHC 33.8 g/dL 32.2-3 5.5 Not Available [address], [address], 10/25/2020 17:15:20 10/25/20 20 10/25/2020 CBC plt 334 K/? ? ?L 182-36 9 Not Available [address], [address], 10/25/2020 17:15:20 10/25/20 20 10/25/2020 CBC MPV 9.1 fL 9.4-12 .3 low Not Available [address], [address], 10/25/2020 17:15:20 10/25/20 20 10/25/2020 CBC neut% 61.4 % 34.0-7 1.1 Not Available [address], [address], 10/25/2020 17:15:20 10/25/20 20 10/25/2020 CBC neut# 3.46 1.56-6 .13 Not Available [address], [address], 10/25/2020 17:15:20 10/25/20 20 10/25/2020 CBC lymph % 29.8 % 19.3-5 1.7 Not Available [address], [address], 10/25/2020 17:15:20 10/25/20 20 10/25/2020 CBC lymph # 1.68 K/? ? ?L 1.18-3 .74 Not Available [address], [address], 10/25/2020 17:15:20 10/25/20 20 10/25/2020 CBC mono% 7.3 % 4.7-12 .5 Not Available [address], [address], 10/25/2020 17:15:20 10/25/20 20 10/25/2020 CBC mono# 0.41 0.24-0 .56 Not Available [address], [address], 10/25/2020 17:15:20 10/25/20 20 10/25/2020 CBC eo% 0.9 % 0.7-5. 8 Not Available [address], [address], 10/25/2020 17:15:20 10/25/20 20 10/25/2020 CBC eo# 0.05 0.04-0 .36 Not Available [address], [address], 10/25/2020 17:15:20 10/25/20 20 10/25/2020 CBC baso% 0.4 % 0.1-1. 2 Not Available [address], [address], 10/25/2020 17:15:20 10/25/20 20 10/25/2020 CBC baso# 0.02 0.00-0 .08 Not Available [address], [address], 10/25/2020 17:15:20 10/25/20 20 10/25/2020 CBC RDW-CV 12.5 % 11.7-1 4.4 Not Available [address], [address], 10/25/2020 17:15:20 10/25/20 20 10/25/2020 CBC Ig% 0.200 % 0.000- 1.500 Ig % >0.5 Indic ates possi ble Left Shift Not Available [address], [address], 10/25/2020 17:15:20 10/25/20 20 10/25/2020 CBC Ig# 0.010 0.000- 0.093 Not Available [address], [address], 10/25/2020 17:15:20 10/25/20 20 10/25/2020 CBC NRBC% 0.0 % 0.0-0. 2 Not Available [address], [address], 10/25/2020 17:15:20 10/25/20 20 10/25/2020 CBC NRBC# 0.000 0.000- 0.012 Not Available [address], [address], 10/25/2020 17:15:20 10/25/20 20 10/26/2020 CMP, serum or plasm a glucose 100 mg/dL 70-100 LIPS= Speci men Sligh tly Lipem ic. Chem Resul ts may be effec jone. Not Available [address], [address], 10/26/2020 09:07:52 10/25/2010/26/2020 CMP, serum or plasm a BUN 13 mg/dL 7-18 Not Available [address], [address], 10/26/2020 09:07:52 10/25/2010/26/2020 CMP, serum or plasm a creatinine 0.7 mg/dL 0.8-1. 3 low Not Available [address], [address], 10/26/2020 09:07:52 10/25/20 20 10/26/2020 CMP, serum or plasm a B/C 18.6 ratio Not Available [address], [address], 10/26/2020 09:07:52 10/25/2010/26/2020 CMP, serum or plasm a GFR -non 105.5 mL/mi n Recom yoli d GFR by the Natio nal Kidne y Found ation >60 mL/mi n/1.7 3m2 - Maru l <60 mL/mi n/1.7 3m2 - Chron ic Kidne y Disea se <15 mL/mi n/1.7 3m2 - Kidne y Failu re Not Available [address], [address], 10/26/2020 09:07:52 10/25/2010/26/2020 CMP, serum or plasm a GFR - if 121.3 mL/mi n For Afric an Ameri can patie nts: Resul ts Multi plied by 1.21 Not Available [address], [address], 10/26/2020 09:07:52 10/25/2010/26/2020 CMP, serum or plasm a sodium 137 mmol/ L 136-14 5 Not Available [address], [address], 10/26/2020 09:07:52 10/25/20 20 10/26/2020 CMP, serum or plasm a potassium 3.8 mmol/ L 3.5-5. 1 Not Available [address] [place], [address], 10/26/2020 09:07:52 10/25/2010/26/2020 CMP, serum or plasm a chloride 100 mmol/ L 96-107 Not Available [address], [address], 10/26/2020 09:07:52 10/25/2010/26/2020 CMP, serum or plasm a anion gap 8.1 5.0-15 .0 Not Available [address], [address], 10/26/2020 09:07:52 10/25/2010/26/2020 CMP, serum or plasm a CO2 29 mmol/ L 21-32 Not Available [address], [address], 10/26/2020 09:07:52 10/25/2010/26/2020 CMP, serum or plasm a calcium 9.4 mg/dL 8.5-10 .3 Not Available [address], [address], 10/26/2020 09:07:52 10/25/2010/26/2020 CMP, serum or plasm a total protein 7.5 g/dL 6.4-8. 2 Not Available [address], [address], 10/26/2020 09:07:52 10/25/2010/26/2020 CMP, serum or plasm a albumin 4.0 g/dL 3.4-5. 0 Not Available [address], [address], 10/26/2020 09:07:52 10/25/2010/26/2020 CMP, serum or plasm a globulin 3.5 g/dL Not Available [address], [address], 10/26/2020 09:07:52 10/25/2010/26/2020 CMP, serum or plasm a A/G 1.1 ratio 0.8-2. 0 Not Available [address], [address], 10/26/2020 09:07:52 10/25/20 20 10/26/2020 CMP, serum or plasm a total bilirubin 0.20 mg/dL 0.00-1 .00 Not Available [address], [address], 10/26/2020 09:07:52 10/25/2010/26/2020 CMP, serum or plasm a AST 16 U/L 0-37 Not Available [address], [address], 10/26/2020 09:07:52 10/25/2010/26/2020 CMP, serum or plasm a ALT 25 U/L 6-63 Not Available [address], [address], 10/26/2020 09:07:52 10/25/2010/26/2020 CMP, serum or plasm a alk. phos. 76 U/L 50-136 Not Available [address], [address], 10/26/2020 09:07:52 10/25/2010/26/2020 bilir ubin, direc t, serum or plasm a direct bilirubin 0.10 mg/dL 0.00-0 .30 Not Available [address], [address], 10/26/2020 09:07:53 10/25/20 20 10/28/2020 gamma -glut amyl trans feras e (ggt) , serum GGT 13 U/L 3-50 normal Not Available [facility] [address] [place] [address] B, [place], [address], 10/28/2020 12:27:22 10/25/2010/28/2020 HIV 1+2 Ab + [...] matio n pleas e refer to http: //[facility] catlinda sen.que stdia gnost ics.c om/fa q/FAQ 106 (This link is being provi ded for infor matio nal/ educa justina l purpo ses only. ) The perfo rmanc e of this assay has not been clini deacon valid ated in patie nts less than 2 years old. Not Available [facility] [address], [address], 10/28/2020 12:27:25 10/25/2010/28/2020 hepat itis C virus Ab, serum hepatitis C antibody REACTI VE non-re active abnormal Not Available [facility] [address], [address], 10/28/2020 12:27:26 10/25/2010/28/2020 hepat itis C virus Ab, serum signal to cut-off 27.80 <1.00 high HCV antib lorenzo was react jessica. The sampl e will be teste d for HCV RNA by a Nucle ic Acid Ampli ficat ion Test (NAAT ) to deter mine if the patie nt has a curre nt activ e infec tion. Not Available [facility] [address] [place], [place], [address], 10/28/2020 12:27:26 10/25/20 20 10/28/2020 hepat itis C virus Ab, serum HCV RNA, quantitative real time PCR <15 NOT DETECT ED IU/mL not detect ed normal Not Available [facility] [address] [place], [place], [address], 10/28/2020 12:27:26 10/25/20 20 10/28/2020 hepat itis [...] false posit jessica resul t. Not Available [facility] [address], [place], [address], 10/28/2020 12:27:26 10/25/2010/28/2020 hepat itis C virus [...] viral thera py. Not Available [facility] [address], [address], 10/28/2020 12:27:26 10/25/20 20 10/28/2020 HBsAg (hepa titis B surfa ce Ag), serum hepatitis B surface antigen NON-RE ACTIVE non-re active normal Not Available [facility] [address], [address], 10/28/2020 12:27:27 10/25/20 20 10/28/2020 hepat itis A Ab, total , serum hepatitis A Ab, total REACTI VE non-re active abnormal For addit ional makayla altman refer to http: //joyce dempsey stdia gnost ics.c om/fa q/FAQ 202 (This link is being provi ded for infor matio nal/ educa justina l purpo ses only. ) Not Available [facility] [address], [address], 10/28/2020 12:27:27 Result Notes None recorded. Problems Name Problem SNOMED Code Status Onset Date Resolution Date Notes Provider Name and Address Organization Details Recorded Time Major depressiv e disorder 436418463 Active 2015 Bee Pressley PA-C [address] [place] [address], [place], [address] , [facility] 6 13:58:17 Attention deficit hyperacti vity disorder 054165821 Active 2015 CSRP stimulant agreement was signed 08/09/2019 LYNN Granda [address] [place], [place] [address] [place], [address], [facility] 9 06:16:47 Chronic low back pain 699639293 Active 2016 Bee Pressley PA-C [address] [place], [place] [address] [place], [address], [facility] 7 09:27:05 Serum thyroid stimulati ng hormone level outside reference range 963566881 Active 2016 Bee Pressley PA-C [address] [place], [place] [address] [place], [address], [facility] 7 08:02:01 Opioid dependenc e 15654329 Active 2017 Phoebe Cuellar [place] [facility] 8 11:19:32 Iron deficienc y 84281939 Active 2018 VANIA Pitts [address] [place], [place] [address] [place], [address], [facility] 9 08:35:21 History of hepatitis C 544755334194 01 Active 2019 see 10/2020 labs ordered by LYNN Flores [address] [place], [place] [address] [place], [address], [facility] 0 14:02:42 Bipolar disorder 83616530 Active 2019 Bee Pressley PA-C [address] [place], [place] [address] [place], [address], [facility] 0 13:36:36 Problem Notes None recorded. Procedures Surgical History Date Name Laterality Status Provider Name and Address Organization Details Recorded Time 04/24/20 22 Smoking cessation counseling cancelled [facility] 04/24/2022 10:00:39 04/24/20 22 Alcohol use screening cancelled Latonia Senior [facility] 04/24/2022 08:52:16 04/24/20 22 Cardiovascular disease risk reduction counseling cancelled Latonia Senior [facility] 04/24/2022 08:52:16 04/24/20 22 Medicare Annual Wellness Visit cancelled Latonia Senior [facility] 04/24/2022 08:52:16 07/26/20 19 Smoking cessation counseling completed Elizabeth Kidd RN [facility] 07/26/2019 09:37:26 07/26/20 19 Carbon Monoxide Testing completed Elizabeth Kidd RN [facility] 07/26/2019 09:37:26 06/21/20 19 Smoking cessation counseling completed Phoebe Cuellar MA [facility] 06/21/2019 10:03:53 06/21/20 19 Carbon Monoxide Testing completed Phoebe Cuellar MA [facility] 06/21/2019 10:03:53 07/26/20 18 Smoking cessation counseling completed Phoebe Cuellar MA [facility] 07/26/2018 13:41:18 07/26/20 18 Carbon Monoxide Testing completed Phoebe Cuellar MA [facility] 07/26/2018 13:41:19 10/12/20 17 Smoking cessation counseling completed Federica Hansen MA [facility] 10/12/2017 12:55:32 09/08/20 17 Smoking cessation counseling completed Phoebe Cuellar MA [facility] 09/08/2017 10:30:51 09/08/20 17 Carbon Monoxide Testing completed Phoebe Cuellar MA [facility] 09/08/2017 10:30:51 07/13/20 17 Smoking cessation counseling completed Karina Patel MA [facility] 07/13/2017 14:26:13 07/13/20 17 Carbon Monoxide Testing completed Karina Patel MA [facility] 07/13/2017 14:26:14 06/11/20 17 Smoking cessation counseling completed Federica Hansen MA [facility] 06/11/2017 10:33:16 08/11/20 16 Smoking cessation counseling completed Phoebe Cuellar MA [facility] 08/11/2016 13:10:28 08/11/20 16 Carbon Monoxide Testing completed Phoebe Cuellar MA [facility] 08/11/2016 13:15:58 01/07/20 16 Smoking cessation counseling completed Phoebe Cuellar MA [facility] 01/07/2016 13:57:52 Imaging Results None recorded. Procedure Notes None recorded. Medical Equipment None Reported. Allergies Allergen ID Allergen Name Allergen Category Reaction Reaction Severity Criticality Documentation Date Start Date Code Code System Note Provider Name and Address Organization Details Recorded Time 572868 Substance with sulfonami de structure and antibacte rial mechanism of action (substanc e) medicatio n rash Not available Not available 01/07/2016 20732 8003 SNOMED Phoebe ROSA Cuellar [facility] 6 13:54:58 Medications Name Sig Start [...] 158.75 cm Phoebe Cuellar [place] - [facility] 03/29/2020 14:16:06 Date Recorded Body height Provider Name an d Address Organization Details Last Updated DateTime 07/09/2020 158.75 cm Phoebe Cuellar MA [facility] 07/09/2020 11:15:15 Date Recorded Body height Body mass index (BMI) Body weight Provider Name and Address Organization Details Last Updated DateTime 07/26/2020 158.75 cm 27 kg/m2 85319.86 g Phoebe Cuellar MA [facility] 07/26/2020 13:21:53 Date Recorded Body height Body mass index (BMI) Body weight Provider Name and Address Organization Details Last Updated DateTime 08/23/2020 158.75 cm 27 kg/m2 27143.86 g Jessica Teran CMA [facility] 08/23/2020 11:12:54 Date Recorded Body height Body mass index (BMI) Body weight Provider Name and Address Organization Details Last Updated DateTime 10/29/2020 158.75 cm 27.5 kg/m2 88560.63 g Phoebe Cuellar MA [facility] 10/29/2020 13:16:20 Date Recorded Body height Body mass index (BMI) Body weight Provider Name and Address Organization Details Last Updated DateTime 02/14/2021 158.75 cm 28.8 kg/m2 94272.78 g Phoebe Cuellar MA [facility] 02/14/2021 11:31:41 Social History Question Answer Notes LastModified by Organizat ion Details LastModified Time Tobacco Smoking Status [facility] 11:10:41 What Is Your Level Of [...] Or With Others? With Others Lives In Skilled Nursing Through [facility]. Information not available 01/07/2016 Does The Patient Have Difficulty Speaking Vietnamese? No Information not available 01/07/2016 Does The Patient Have Difficulty Reading Vietnamese? No Information not available 01/07/2016 Marital Status [...] Recorded Time Tdap 10/27/2015 completed ROSA Adams [facility] 01/07/2016 14:27:11 Past Encounters Encounter ID Performer Location Encounter Start Date Encounter Closed Date Diagnosis/Indication Diagnosis SNOMED-CT Code Diagnosis ICD10 Code Diagnosis Note [id number] Bee Pressley PA-C , [facility] [place] [address] 01/07/2016 13:32:31 01/07/2016 14:34:52 Tobacco user 233069210 Z72.0 smoker of many years, not ready or willing to quit at this moment. given many ways in which we could be helpful. Pt will consider. Depressive disorder 5324 9007 F32.9 stable, has relationsh ip with [facility], is looking for prescriber currently at a [facility] retirement venlafaxin e ER 150 BID Anxiety disorder 1554229 06 F41.9 currently in [facility] retirement awaiting psychiatri c evaluation lorazepam 1 mg bid and hydroxyzin e 25 mg aid Restless legs 83598476 G 25.81 Pramipexol e 0.125 , pt admits to not needing this very often Opioid dependence 476372 00 F11.20 suboxone 8mg-2mg film, prescribed by [facility] x 4 months currently staying at a [facility] retirement Chronic low back pain 27 1046971 M54.5 gabapentin 300 mg tid Chronic neck pain 088071 2660 107 M54.2 gabapentin 300mg tid Anemia 925022421 D64.9 history of anemia, takes daily vitamin (no iron) Chronic hepatitis C 1283 34890 B18.2 pt sts has hx of hepatitis C diagnosed 1-2 yr ago, she denies ever being treated with mediations , and is unsure of status of Hep C. Will discuss with Dr. Lawler in am for further work up and evaluation . [id number] Bee Pressley PA-C , [facility] [address] [place] [address] 02/25/2016 14:41:56 02/25/2016 15:38:06 Adult health examination 932415185 Z00.00 see Risk Assessment and Lifestyle Change Counseling section above Overall feels good, no new complaints , pt receives her mental health care at [facility] for [facility] who also prescribes for her. follow up in 6 months Counseling 830825905 Z71 .9 Nutritiona l deficiency disorder 53401536 E63.9 Restless legs 15238900 G 25.81 Pramipexol e 0.125 , pt admits to not needing this very often Chronic low back pain 27 8313032 M54.5 gabapentin 300 mg tid Depressive disorder 3548 9007 F32.9 stable, has relationsh ip with [facility], is looking for prescriber currently at a [facility] e ER 150 BID [id number] Bee Pressley PA-C FP, [facility] [address] [facility] [place] [address] 08/11/2016 12:58:51 08/11/2016 14:08:16 Cigarette smoker 62436147 F17.210 Tobacco user 095342332 Z 72.0 smoker of many years, not ready or willing to quit at this moment. given many ways in which we could be helpful. Pt will consider. Major depr essive disorder 985424794 F32.9 Mari Velasquez talked with pt. and pt will follow up with her and go to [facility] now. Attention deficit hyperactivity disorder 961045752 F90.9 advised we would only do gap filll. Fatigue 88633195 R53.83 pt sts she feels tired all the time. her sister and cousin have thyroid cancer and she would like thyroid blood test. [id number] VANIA Pitts , [facility] [address] [facility] [place] [address] 06/11/2017 10:22:13 06/11/2017 11:16:07 Cigarette smoker 81086480 F17.210 Not ready to quit. Tobacco user 291923048 Z 72.0 Attention deficit hyperactivity disorder 613575166 F90.9 Was being prescribed concerta while by [facility]. They stopped refilling it now that she has delivered her baby. Will provide 2 week script with dionte carolina for her to follow up with PCP or [facility] for any further refills. [id number] Mendez Desai NP , [facility] [address] [facility] [place] [address] 07/13/2017 14:18:11 07/13/2017 17:02:16 Cigarette smoker 30594157 F17.210 Tobacco user 814906209 Z 72.0 smokes 3-5 daily. Given informatio n on Quit Smoking program at [facility] and encouraged to Call Mr Lagos for more informatio n. Attention deficit hyperactivity disorder 344812296 F90.9 has been on this medication for a number of years. Unfortwilliguero sherita as a new pt here she has gone without. Requesting med until seen by new PCP. Major depr essive disorder 278903938 F32.9 has been without med recently until her mother paid for one month of med to get her to appt. She must be seen by new PCP within the month or no more will be ordered. Chronic low back pain 27 2203181 M54.5 hx states chronic neck and back pain for which she sees a chiropract or. Unable to get more hx today due to infant and young daughter accompanyi ng patient today. Cough 01261552 R05 no cough during exam today, appears well, normal exam. push fluids and encouraged to D/C smoking Acute laryngitis 9902504 J04.0 raspy voice with otherwise normal exam. reassured. FU as needed [id number] SVETLANA Ortiz, [facility] [address] [facility] [place] [address] 07/21/2017 09:42:12 07/21/2017 17:48:20 Attention deficit hyperactivity disorder, predominantly inattentive type 61861185 F90.0 This was a 10 min time based appoint for a bridge prescripti on for concerta. She is waiting to hear from [facility] about her request for appointmen t. !00% of time spent on counseling . Advised to keep appointmen ts with [facility] for further presriptio ns. [id number] SVETLANA Ortiz, [facility] [address] [facility] [place] [address] 09/08/2017 10:25:06 09/08/2017 11:27:11 Cigarette smoker 98635793 F17.210 min of 10 min discussed, pt would like to talk to Fortino Vargas but cannot make meetings, will send him message to outreach via phone. Tobacco user 426478509 Z 72.0 abve Fatigue 39101716 R53.83 pt sts she feels tired all the time. TSH, CRP, ESR, CBC, Vit B12 all within normal limits. will do lyme and liver function today and follow up in 30 days. If all normal, will consider referral to rheumatolo gy Attention deficit hyperactivity disorder 994201042 F90.9 advised we would only do gap filll. [id number] Ariana Miranda MD , [facility] [address] [place] [address] 10/12/2017 12:49:40 10/12/2017 16:22:07 Cigarette smoker 86083047 F17.210 Encouraged cutting back and cessation. Attention deficit hyperactivity disorder 398263503 F90.9 Prescripti on refilled today. Reinforced need to see psychiatri c prescriber given current fatigue symptoms, history of bipolar disorder, and ADHD. Discussed considerat ion of adding bupropion to treat both fatigue and can attention symptoms. Would also benefit from smoking cessation properties Fatigue 02119948 R53.83 Likely multifacto rial. Patient has 7 months with known history of bipolar disorder. Patient is on multiple medication s including Suboxone and gabapentin which could be contributi ng. Patient with interrupte d sleep pattern. Reviewed lab work. Discussed considerat ion of sleep study in the future. [id number] Bee Pressley PA-C , [facility] [address] [place] [address] 12/04/2017 13:30:25 12/04/2017 14:16:47 Counseling 508263111 Z71.9 Attention deficit hyperactivity disorder 654113805 F90.9 sees counselor at [facility] has appoint next month with prescriber Chronic low back pain 27 8589523 M54.5 gabapentin 300 mg tid seems to be helping low back pain Major depr essive disorder 107414007 F32.9 goes to [facility], has therapist Renewal of prescription 526543862 Z76.0 needs daily multi vitamin [id number] Bee Pressley PA-C , [facility] [address] [place] [address] 06/11/2018 11:00:29 06/11/2018 12:39:05 Attention deficit hyperactivity disorder 223188027 F90.9 sees counselor at [facility] requested copies of lab work done at [facility] went over [facility] policy re controlled substances , if drug screens are positive for other than amphetamin e prescribed will discontinu e prescribin g. pt agrees. Viral hepatitis C 764188 07 B19.20 being treated at [facility] [id number] Bee Pressley PA-C , [facility] [address] [place] [address] 07/26/2018 13:22:49 07/26/2018 14:20:27 Adult health examination [id number] Z00.00 see Risk Assessment and Lifestyle Change Counseling section above Counseling 386147506 Z71 .9 Depression screening 171 571106 Z13.89 depression screening tool administer ed, entered into emr, scored and discussed, time greater than 7.5 minutes Attention deficit hyperactivity disorder, predominantly inattentive type 05032178 F90.0 Pt is on concerta. She is not connected to CHD any more. She would like us to prescribe her concerta. given RX today will have her sign consent and MAT stimulants next visit Cigarette smoker 8712720 7 F17.210 min of 6 min discussed, negative effectes of vaping strongly encouraged to stop Tobacco user 186344501 Z 72.0 above [id number] Bee Pressley PA-C , [facility] [address] [place] [address] 10/22/2018 13:18:37 10/22/2018 17:31:56 Opioid dependence 12759173 F11.20 suboxone 8mg-2mg film, prescribed by [facility] x 4 months currently staying at a [employer] retirement Attention deficit hyperactivity disorder 187130605 F90.9 sees counselor at [facility] is doing very well, Will follow up with her in 3 months [id number] Bee Pressley PA-C , [facility] [address] [place] [address] 02/03/2019 12:58:19 02/03/2019 14:48:38 Attention deficit hyperactivity disorder, predominantly inattentive type 92963976 F90.0 Pt is on concerta. She is not connected to CHD any more. She would like us to prescribe her concerta. given RX today will have her sign consent and MAT stimulants next visitmass pat checked no concerns Opioid dependence 416218 00 F11.20 suboxone 8mg-2mg film, prescribed by [facility] x 4 months currently staying at a [employer] retirement [id number] Bee Pressley PA-C , [facility] [address] [place] [address] 03/04/2019 10:58:46 03/04/2019 13:24:48 Attention deficit hyperactivity disorder, predominantly inattentive type 34376179 F90.0 Pt is on concerta. She is not connected to CHD any more. She would like us to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
--- OUTSIDE RECORDS SUMMARY | 2024-12-21 07:52 | XMS_ITS | Encounter Summary ---
Author Organization [facility] Address [address] [place] [address] Care Team Providers Care Field Representatives Director Name Role Phone Ab Hope Primary Care Provider [phone] Reason for Visit * Reason Comments STI Exposure Encounter Details Date Type Department Care Team (Latest Contact Info) Description 10/27/2024 10:00 AM EST Office Visit [employer] @ [address] [phone] Ab Hope PA [address] [place] [phone] Opioid dependence in remission ([facility]) (Primary Dx); Unsheltered homelessness; Alcohol use; Possible [...] Due for removal in 1 yr. F/b [employer] in [place]. * KIM Hand - 10/27/2024 3:38 PM [...] PM ESTAssociated Problem(s): Opioid dependence in remission ([facility]) - Hx of opoid dependence - Previously on suboxone but not since the spring. - Continues without cravings or thoughts of use - Reviewed OD prevention and that MAT available if needed * KIM Hand - 10/27/2024 3:26 PM ESTAssociated Problem(s): Unsheltered homelessness - [facility] - Patient is currently homeless as documented in homeless status for this encounter. - Given complex limitations of homelessness, provided care as appropriate. Will continue to supportas possible. * KIM Hand - 10/27/2024 10:28 AM EST Provider Ambulatory Note [facility] Name: Ilana Newton : 1985 Age: [age] year old Gender: female Address: [address] [place], [place] [address] Encounter Date: 10/27/2024 Primary Provider: No primary care provider on file. Provider: KIM Hand Department: [facility] Reason for Visit: Chief Complaint Patient presents with STI Exposure SUBJECTIVE: Ilana Newton is a 39 year old [facility] STI exposure- Condom-less vaginal [...] Reports that she has an apartment [place] [address] in [place]. Doesn't feel stuck in [place] but doesn't want to return to [place] until she's physically, mentally,and spiritually whole. Wants respite or retreat so that she can focus on self so that she feels that she can return to apartment. Discussed [facility] admission for care coordination, respite. Declines today as has appointment with social security and concerned about partner who speaks primarily Chinese. Medications Current Outpatient Medications Medication Sig Dispense [...] Due for removal in 1 yr. F/b [employer] in [place]. Bacterial vaginosis - Sureswab positive for bacterial vaginosis 10/10. S/p metronidazole 500mg BID x7d. - Reports malodor after recent STI exposure. Ppx tx for Trich with metronidazole. Will plan for 7 day course to also cover possible recurrence of BV Unsheltered homelessness - [facility] - Patient is currently homeless as [...] Annual Screen Never done Imm-Influenza (1) 07/17/2024 Miv-PUUTN-16 ( season) Never done Problem List Items Addressed This Visit None documented in this encounter Plan of Treatment Not on file documented as of this encounter Visit Diagnoses Diagnosis Opioid dependence in remission ([facility])- Primary Opioid type dependence, in remission Unsheltered homelessness Alcohol use Reserved for inherently not codable concepts WITHOUT codable children Possible exposure to STI Exposure to HIV Contact with or exposure to other viral diseases Bacterial vaginosis Vaginitis and vulvovaginitis, unspecified Onychomycosis Dermatophytosis of nail Encounter for contraceptive management, unspecified type documented in this encounter Care Teams Field Representatives Director Relationship Specialty Start Date End Date Ab Hope PA [address] [place] [phone] PCP - General [facility] 11/14/24 documented as of this encounter
--- OUTSIDE RECORDS SUMMARY | 2024-12-21 07:52 | XMS_ITS | Encounter Summary ---
Author Organization [facility] Address [address] [place] [address] Care Team Providers Care Hawk Missile System Crewmember Name Role Phone Ab Hope Primary Care Provider [phone] Encounter Details Date Type Department Care Team (Late st Contact Info) Description 11/22/2024 1:00 PM EST Office Visit [facility] @ [address] [address] Ab Hope PA [address] [place] [phone] Bacterial vaginosis (Primary Dx); Onychomycosis; Exposure to [...] GONORRHOEAE RNA,TMA (11/25/2024 3:43 PM EST) Pathologist [facility] CHLAMYDIA TRACHOMATIS RNA, TMA NOT DETECTED NOT DETECTED [employer] [facility] NEISSERIA GONORRHOEAE RNA, TMA NOT DETECTED NOT DETECTED [employer] [facility] COMMENT [employer] [facility] Urine Urine specimen / Unknown 11/25/2024 3:43 PM EST 11/25/2024 3:44 PM EST Narrative [employer] [facility] - 11/28/2024 1:28 PM EST The analytical performance characteristics of this assay, when used to test SurePath(TM) specimens have been determined by [employer]. The modifications have not been cleared or approved by the FDA. This assay has been validated pursuant to the CLIA regulations and is used for clinical purposes. For additional information, please refer to https://education.Wochit/faq/QVE260 (This link is being provided for information/ educational purposes only.) Ab [facility] - NO BLOOD DRAW Edited Resul t - Final [employer] [address] [address], [employer] [address] [phone] * (ABNORMAL) COMPREHENSIVE METABOLIC PANEL (11/25/2024 3:43 PM EST) Pathologist [facility] GLUCOSE 102(H) 65 - 99 mg/dL [employer] [facility] Comment: ?Fasting reference interval For someone without known diabetes, a glucose value between 100 and 125 mg/dL is consistent with prediabetes and should be confirmed with a follow-up test. UREA NITROGEN (BUN) 18 7 - 25 mg/dL [employer] [facility] CREATININE (blood) 0.92 0.50 - 0.99 mg/dL [employer] [facility] EGFR 80 > OR = 60 mL/min/1. 73m2 [employer] [facility] BUN/CREATININE RATIO SEE NOTE: [employer] [facility] Comment: ?? Not Reported: BUN and Creatinine are within ?? reference range. ? SODIUM 138 135 - 146 mmol/L [employer] [facility] POTASSIUM 3.9 3.5 - 5.3 mmol/L [employer] [facility] CHLORIDE 101 98 - 110 mmol/L [employer] [facility] CARBON DIOXIDE 27 20 - 32 mmol/L [employer] [facility] CALCIUM 9.2 8.6 - 10.2 mg/dL [employer] [facility] PROTEIN, TOTAL 7.3 6.1 - 8.1 g/dL [employer] [facility] ALBUMIN 4.4 3.6 - 5.1 g/dL [employer] [facility] GLOBULIN 2.9 1.9 - 3.7 g/dL (calc) [employer] [facility] ALBUMIN/GLOBULI N RATIO 1.5 1.0 - 2.5 (calc) [employer] [facility] BILIRUBIN, TOTAL 0.4 0.2 - 1.2 mg/dL [employer] [facility] ALKALINE PHOSPHATASE 70 31 - 125 U/L [employer] [facility] AST 19 10 - 30 U/L [employer] [facility] ALT 15 6 - 29 U/L [employer] [facility] Blood Blood / Unknown 11/25/2024 3 :43 PM EST 11/25/2024 3:44 PM EST Ab [facility] - BLOOD DRAW Edited Result - Final [employer] [address] [address], [employer] [address] [address] * HIV 1/2 AG & AB W/RFLX (4TH GEN) (11/25/2024 3:43 PM EST) HIV AG/AB, 4TH GEN NON-REAC TIVE NON-REAC TIVE [employer] [facility] Comment: HIV-1 antigen and HIV-1/HIV-2 antibodies [...] ?? For additional information please refer to http://education.Wochit/faq/XCL650 (This link is being provided for informational/ educational purposes only.) The performance of this assay has not been clinically validated in patients less than 2 years old. Blood Blood / Unknown 11/25/2024 3 :43 PM EST 11/25/2024 3:44 PM EST us Ab [facility] - BLOOD DRAW Final Result Performing Organization Address [facility] de Phone Number [employer] [address] [place] [address], [employer] [address] [phone] * SYPHILIS ANTIBODY CASCADING REFLEX (11/25/2024 3:43 PM EST) T. PALLIDUM AB, EIA NEGATIVE NEGATIVE [employer] [facility] Comment: No antibodies to T. pallidum (the [...] BLOOD DRAW Final Result Performing Organization Address [facility] Co de Phone Number [employer] [address] [place] [address], [employer] [address] [address] * (ABNORMAL) SURESWAB ADVANCED VAGINITIS PLUS, TMA (11/22/2024 2:10 PM EST) CHLAMYDIA TRACHOMATIS RNA, TMA NOT DETECTED NOT DETECTED [employer] [facility] NEISSERIA GONORRHOEAE RNA, TMA NOT DETECTED NOT DETECTED [employer] [facility] COMMENT [employer] [facility] SURESWAB(R) ADV BACTERIAL VAGINOSIS (BV), TMA NEGATIVE NEGATIVE [employer] [facility] TRICHOMONAS VAGINALIS (TV), TMA NOT DETECTED NOT DETECTED [employer] [facility] MIRYAM SPECIES NOT DETECTED NOT DETECTED [employer] [facility] MIRYAM GLABRATA DETECTED(A) NOT DETECTED [employer] [facility] Comment: C. glabrata, which is responsible for the majority of non-albicans CV in the [place] may have decreased susceptibility to standard antimycotic therapeutic intervention compared to C. albicans. COMMENT [employer] [facility] Vaginal Fluid Vaginal structure / Unknown 11/22/2024 2:10 PM EST 11/23/2024 9:28 AM EST Narrative [employer] [facility] - 11/24/2024 2:43 AM EST Miryam species C. albicans, C. tropicalis, C. parapsilosis, and/or C. dubliniensis can be detected, but not differentiated, in the Miryam spp. result. For additional information, please refer to https://education.Wochit/faq/UAR525 (This link is being provided for information/ educational purposes only.) Ab [facility] - NO BLOOD DRAW Final Result [employer] [address] [address], [employer] [address] [address] documented in this encounter Visit Diagnoses Diagnosis Bacterial vaginosis- Primary Vaginitis and vulvovaginitis, unspecified Onychomycosis Dermatophytosis of nail Exposure to HIV Contact with or exposure to other viral diseases documented in this encounter Care Teams Hawk Missile System Crewmember Relationship Specialty Start Date End Date Ab Hope PA [address] [place] [phone] PCP - General FAMILY MEDICINEKIM 11/14/24 documented as of this encounter
--- OUTSIDE RECORDS SUMMARY | 2024-12-21 07:52 | XMS_ITS | Referral Summary ---
Author Organization [facility] Address [address] [place] [address] Care Team Providers Care Appliance Service Supervisor Name Role Phone Patient, Has No Pcp [...] htat she will have to go to [facility] for further refills if she is going to stay in [place]. Gave her the cotact info for that office. Uncomplicated opioid dependence 02/08/2024 Assessment & Plan (04/19/2024 10:02 AM EDT): Rx sent today; advised re: follow up at [facility] for further refills. Social History Tobacco [...] on file Insurance [place] [employer] Care Teams Appliance Service Supervisor Relationship Specialty Start Date End Date Patient, Has No Pcp Or Ref DO NOT EDIT THIS RECORD VIA PROVIDER ON THE FLY PCP - General Biometrics Analyst 02/14/24
--- OUTSIDE RECORDS SUMMARY | 2024-12-21 07:52 | XMS_ITS | Encounter Summary ---
Author Organization [facility] Address [address] [place] [address] Care Team Providers Care Pcb Design Engineer Name Role Phone Ab Hope Primary Care Provider Reason for Visit * Reason Comments Lab Result Encounter Details Date Type Department Care Team (Late st Contact Info) Description 10/12/2024 10:00 AM EST Office Visit [facility] @ [address] [phone] Alana Blackman, RITA [address] [place] [address] Bacterial vaginosis (Primary Dx) Social [...] Age: [age] year old Gender: female Address: [address] [place] [address] Encounter Date: 10/12/2024 Primary Provider: No primary care provider on file. Provider: [facility] Open Access Department: [facility] @ [facility] Reason for Visit: Chief Complaint Patient presents [...] unspecified documented in this encounter Care Teams Pcb Design Engineer Relationship Specialty Start Date End Date Ab Hope PA [address] [place] [address] PCP - General FAMILY MEDICINEKIM 11/14/24 documented as of this encounter
--- OUTSIDE RECORDS SUMMARY | 2024-12-21 07:52 | XMS_ITS | Encounter Summary ---
Author Organization [facility] Address [address] [place] [address] Care Team Providers Care Handhole Machine Operator Name Role Phone Ab Hope Primary Care Provider [phone] Reason for Visit * Reason Comments Test Results Vaginitis/Bacterial Vaginosis Encounter Details Date Type Department Care Team (Latest Contact Info) Description 11/24/2024 9:30 AM EST Office Visit [facility] @ [address] [phone] Ab Hope PA [address] [place] [phone] Saroj glabrata infection (Primary Dx); Bacterial [...] ESTAssociated Problem(s): Unsheltered homelessness - staying at [facility] in [place] - Patient is currently homeless as documented in homeless status for this encounter. - Given complex limitations of homelessness, provided care as appropriate. Will continue to supportas possible. * KIM Hand - 11/24/2024 3:25 PM ESTAssociated Problem(s): Contraception management - Continue with mirena. Due for removal in 1 yr. 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 * KIM Hand - 11/24/2024 3:23 PM [...] Age: [age] year old Gender: female Address: [address] [place] [address] Encounter Date: 11/24/2024 Primary Provider: KIM Hand Provider: KIM Hand Department: [facility] @ [facility] Reason for Visit: Chief Complaint Patient presents with Test Results Vaginitis/Bacterial Vaginosis SUBJECTIVE: Ilana Newton is a 39 year old female who presents to the clinic at [facility] to follow-up ontest results from earlier this week. Endorses improved sx after BV tx but with recurrence of discomfort, irritation. Resutls with positive for saroj glabrate. Would like to proceed with treatment. Not covered by insurance. Agreeable to crop picker at [facility]. Reviewed plan for repeat testing s/p exposure. Will go to [address] [place] [address] Already scheduled to go there for legal [...] Due for removal in 1 yr. 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 Bacterial vaginosis - Repeat sureswab negative for BV - If BV reoccurs would cosnider maintenance therapy Unsheltered homelessness - staying at [facility] in [place] - Patient is currently homeless as documented [...] homelessness documented in this encounter Care Teams Handhole Machine Operator Relationship Specialty Start Date End Date Ab Hope PA [address] [place] [phone] PCP - General FAMILY MEDICINEKIM 11/14/24 documented as of this encounter
--- OUTSIDE RECORDS SUMMARY | 2024-12-21 07:52 | XMS_ITS | Clinical Summary ---
Author Organization [facility] Address [address] [place] [address] Care Team Providers Care Cow Puncher Name Role Phone Ab Hope Primary Care Provider [phone] Source Comments PLEASE NOTE, if this patient [...] different from the original. Pt newly in [place] after spending short time in [place]. Originally from [facility] [place] [place]. Unsure what her plans are so not ready to establish primary care at this moment, but looking to get labs for basic health and STI screening and get a new script for her dhara which was lost. Previous prescriber was a Dr. Bernabe in [place]. Directed pt to [facility] for lab and screenings today and encouraged pt to connect with there on Thursday if not possible today. Pt to return to [facility] for UA culture results later this [...] can establish with behavioral health - Discussed [facility] and given information. - Unable to schedule behavioral health intake as assistant front office manager has already left but patient to return [...] (11/24/2024 3:25 PM EST): - staying at [facility] - Patient is currently homeless as documented in homeless status for this encounter. - Given complex limitations of homelessness, provided care as appropriate. Will continue to support as possible. Assessment & Plan (10/27/2024 3:26 PM EST): - staying outside [facility] - Patient is currently homeless as documented [...] as possible. Opioid dependence in remission ([facility]) 024 Assessment & Plan (10/27/2024 3:27 PM [...] Reviewed that MAT available including subxone at [facility] if felt that she needs in the [...] 2:59 PM EST): Pt presents to the [facility] clinic with ongoing symptoms of BV. Finished [...] Due for removal in 1 yr. 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 Assessment & Plan (10/27/2024 3:39 PM EST): - Continue with mirena. Due for removal in 1 yr. 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 Assessment & Plan (09/08/2024 2:17 PM EDT): Mirena in place, reports is on year 7. 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 Would be due for removal in 1 year. CTF with FABRIC COATING SUPERVISOR Urinary frequency 09/06/2024 Assessment & Plan (09/08/2024 [...] EST Office Visit [facility] @ [address] [phone] Ab Hope PA Saroj glabrata infection (Primary Dx); Bacterial vaginosis; Encounter for contraceptive management, unspecified type; Unsheltered homelessness 11/24/2024 Interim Notes [facility] @ [facility] [address] [place] [phone] Gabriela Alcantar 11/22/2024 1:00 PM EST Office Visit [facility] @ [address] [phone] Ab Hope PA Bacterial vaginosis (Primary Dx); Onychomycosis; Exposure to HIV 11/14/2024 12:00 PM EST Office Visit [facility] @ [address] [phone] Kimber Walton RN Bacterial vaginosis (Primary Dx) 11/11/2024 10:00 AM EST Office Visit [facility] @ [address] [phone] Kimber Walton RN Bacterial vaginosis (Primary Dx); Possible exposure to STI 11/01/2024 1:00 PM EST Office Visit [facility] @ [address] [phone] Ladan Dominguez RN Psychiatric disorder (Primary Dx); Depression, unspecified depression type; Complex care coordination 10/28/2024 12:30 PM EST Office Visit [facility] @ [address] [phone] Gabbi Benton RN Possible exposure to STI (Primary Dx) 10/27/2024 10:00 AM EST Office Visit [facility] @ [address] [address] Ab Hope PA Opioid dependence in remission ([facility]) (Primary Dx); Unsheltered homelessness; Alcohol use; Possible exposure to STI; Exposure to HIV; Bacterial vaginosis; Onychomycosis; Encounter for contraceptive management, unspecified type 10/21/2024 1:00 PM EST Office Visit [facility] @ [address] [address] Gabbi Benton RN Onychomycosis (Primary Dx) 10/12/2024 10:00 AM EST Office Visit [facility] @ [address] [phone] Alana Blackman NP Bacterial vaginosis (Primary Dx) 10/06/2024 1:00 PM EST Office Visit [facility] @ [address] [address] Ab Hope PA Onychomycosis (Primary Dx); Hx of gonorrhea; Psychiatric disorder; Hx of hepatitis C; Unsheltered homelessness; Opioid dependence in remission ([facility]); Cigarette nicotine dependence without complication 10/05/2024 11:30 AM EST Office Visit [facility] @ [address] [address] Gabbi Benton RN Complex care [...] Smear 2004 Breast Cancer Screening (Mammogram) 2023 [id number] ( season) 2024 Imm-Influenza (#1) 2024 02/16/2012 [...] EST) T. PALLIDUM AB, EIA NEGATIVE NEGATIVE [facility] Comment: No antibodies to T. pallidum (the [...] [facility] - BLOOD DRAW Final Result [employer] [address] [place] [id number], [facility] [address] [place] [phone] * HIV 1/2 AG & AB W/RFLX (4TH GEN) (11/25/2024 3:43 PM EST) HIV AG/AB, 4TH GEN NON-REAC TIVE NON-REAC TIVE [facility] Comment: HIV-1 antigen and HIV-1/HIV-2 antibodies were [...] ?? For additional information please refer to http://education.Amanda Huff DBA SecuRecovery.Concert Window/faq/TGQ762 (This link is being provided for informational/ educational purposes only.) The performance of this assay has not been clinically validated in patients less than 2 years old. Blood Blood / Unknown 11/25/2024 3 :43 PM EST 11/25/2024 3:44 PM EST us Ab [facility] - BLOOD DRAW Final Result Performing Organization Address [facility] Co de Phone Number [employer] [address] [address], [employer] [address] [address] * C TRACHOMATIS/N GONORRHOEAE RNA,TMA (11/25/2024 3:43 PM EST) [facility] CHLAMYDIA TRACHOMATIS RNA, TMA NOT DETECTED NOT DETECTED [employer] [facility] NEISSERIA GONORRHOEAE RNA, TMA NOT DETECTED NOT DETECTED [employer] [facility] COMMENT [employer] [facility] Urine Urine specimen / Unknown 11/25/2024 3:43 PM EST 11/25/2024 3:44 PM EST Narrative [facility] - 11/28/2024 1:28 PM EST The analytical performance characteristics of this assay, when used to test SurePath(TM) specimens have been determined by [employer]. The modifications have not been cleared or approved by the FDA. This assay has been validated pursuant to the CLIA regulations and is used for clinical purposes. For additional information, please refer to https://education.Amanda Huff [employer]BA SecuRecovery.Concert Window/faq/HOW126 (This link is being provided for information/ educational purposes only.) us Ab [facility] - NO BLOOD DRAW Edited Resul t - Final Performing Organization Address [facility] Co de Phone Number [employer] [address] [address], [employer] [address] [address] * (ABNORMAL) COMPREHENSIVE METABOLIC PANEL (11/25/2024 3:43 PM EST) [facility] GLUCOSE 102(H) 65 - 99 mg/dL [employer] [facility] Comment: ?Fasting reference interval For someone without known diabetes, a glucose value between 100 and 125 mg/dL is consistent with prediabetes and should be confirmed with a follow-up test. UREA NITROGEN (BUN) 18 7 - 25 mg/dL [employer] [facility] CREATININE (blood) 0.92 0.50 - 0.99 mg/dL [employer] [facility] EGFR 80 > OR = 60 mL/min/1. 73m2 [employer] [facility] BUN/CREATININE RATIO SEE NOTE: [employer] [facility] Comment: ?? Not Reported: BUN and Creatinine are within ?? reference range. ? SODIUM 138 135 - 146 mmol/L [employer] [facility] POTASSIUM 3.9 3.5 - 5.3 mmol/L [employer] [facility] CHLORIDE 101 98 - 110 mmol/L [employer] [facility] CARBON DIOXIDE 27 20 - 32 mmol/L [employer] [facility] CALCIUM 9.2 8.6 - 10.2 mg/dL [employer] [facility] PROTEIN, TOTAL 7.3 6.1 - 8.1 g/dL [employer] [facility] ALBUMIN 4.4 3.6 - 5.1 g/dL [employer] [facility] GLOBULIN 2.9 1.9 - 3.7 g/dL (calc) [employer] [facility] ALBUMIN/GLOBULI N RATIO 1.5 1.0 - 2.5 (calc) [employer] [facility] BILIRUBIN, TOTAL 0.4 0.2 - 1.2 mg/dL [employer] [facility] ALKALINE PHOSPHATASE 70 31 - 125 U/L [employer] [facility] AST 19 10 - 30 U/L [employer] [facility] ALT 15 6 - 29 U/L [employer] [facility] Blood Blood / Unknown 11/25/2024 3 :43 PM EST 11/25/2024 3:44 PM EST us Ab [facility] - BLOOD DRAW Edited Result - Final [employer] [address] [address], [employer] [facility] [address] [place] [address] * (ABNORMAL) SURESWAB ADVANCED VAGINITIS PLUS, TMA (11/22/2024 2:10 PM EST) Only the most recent of3 resultswithin the time period is included. CHLAMYDIA TRACHOMATIS RNA, TMA NOT DETECTED NOT DETECTED [employer] [facility] NEISSERIA GONORRHOEAE RNA, TMA NOT DETECTED NOT DETECTED [employer] [facility] COMMENT [employer] [facility] SURESWAB(R) ADV BACTERIAL VAGINOSIS (BV), TMA NEGATIVE NEGATIVE [employer] [facility] TRICHOMONAS VAGINALIS (TV), TMA NOT DETECTED NOT DETECTED [employer] [facility] SAROJ SPECIES NOT DETECTED NOT DETECTED [employer] [facility] SAROJ GLABRATA DETECTED(A) NOT DETECTED [employer] [facility] Comment: C. glabrata, which is responsible for the majority of non-albicans CV in the [place] may have decreased susceptibility to standard antimycotic therapeutic intervention compared to C. albicans. COMMENT [employer] [facility] Vaginal Fluid Vaginal structure / Unknown 11/22/2024 2:10 PM EST 11/23/2024 9:28 AM EST Narrative [employer] [facility] - 11/24/2024 2:43 AM EST Saroj species C. albicans, C. tropicalis, C. parapsilosis, and/or C. dubliniensis can be detected, but not differentiated, in the Saroj spp. result. For additional information, please refer to https://education.Virtual Command/faq/KWC005 (This link is being provided for information/ educational purposes only.) Ab [facility] - NO BLOOD DRAW Final Result Performing Organization Address City/State/[facility] Co de Phone Number [employer] [address] [address], [employer] [address] [address] from Last 3 Months Insurance [facility] Member Subscriber Plan / Payer (Ef fective 2024-Present) Name:Lamar Ilana Relation to Subscriber:Self Name:Ilana Newton Payer ID:[id number] Group ID:Not on file Type:Medicaid Address: [address] [address] Care Teams Cow Puncher Relationship Specialty Start Date End Date Ab Hope PA [address] [place] [phone] PCP - General FAMILY MEDICINE, [place] 11/14/24
--- OUTSIDE RECORDS SUMMARY | 2024-12-21 07:52 | XMS_ITS | Encounter Summary ---
Author Organization [facility] Address [address] [place] [address] Care Team Providers Care Wood Milling Machine Operator Name Role Phone Ab Hope Primary Care Provider [phone] Reason for Visit * Reason Comments STI Encounter Details Date Type Department Care Team (Late st Contact Info) Description 11/11/2024 10:00 AM EST Office Visit [facility] @ [address] [id number] Kimber Walton, HARDIK [address] [place] [phone] Bacterial vaginosis (Primary Dx); Possible exposure to [...] Problem(s): Bacterial vaginosis Pt presents to the clinic with ongoing symptoms of BV. Finished [...] who presents with STI Pt came to clinic reporting that symptoms of BV have [...] Drug Screen Never done Imm-Influenza (1) 07/17/2024 [id number] ( season) Never done Problem List Items Addressed This Visit Reproductive Bacterial vaginosis Pt presents to the clinic with ongoing symptoms of BV. Finished [...] ADV BACTERIAL VAGINOSIS (BV), TMA POSITIVE(A) NEGATIVE Sponto MIRYAM SPECIES DETECTED(A) NOT DETECTED Sponto MIRYAM GLABRATA NOT DETECTED NOT DETECTED Sponto COMMENT [facility] TRICHOMONAS VAGINALIS (TV), TMA NOT DETECTED NOT DETECTED Sponto CHLAMYDIA TRACHOMATIS RNA, TMA NOT DETECTED NOT DETECTED [facility] [place] [facility] NEISSERIA GONORRHOEAE RNA, TMA NOT DETECTED NOT DETECTED Sponto COMMENT [facility] [place] [facility] Vaginal Fluid Vaginal structure / Unknown 11/11/2024 11:18 AM EST 11/12/2024 1:54 AM EST Narrative [employer] - 11/12/2024 11:31 AM EST Miryam species C. albicans, C. tropicalis, C. parapsilosis, and/or C. dubliniensis can be detected, but not differentiated, in the Miryam spp. result. For additional information, please refer to https://education.Geswind/faq/HBN605 (This link is being provided for information/ educational purposes only.) us Alana Blackman VICE PRESIDENT OF OPERATIONS LAB - NO BLOOD DRAW Fin al Result [facility] [address] [id number], [facility] [address] [place] [address] documented in this encounter Visit Diagnoses Diagnosis Bacterial vaginosis- Primary Vaginitis and vulvovaginitis, unspecified Possible exposure to STI documented in this encounter Care Teams Wood Milling Machine Operator Relationship Specialty Start Date End Date Ab Hope PA [address] [place] [phone] PCP - General [facility] 11/14/24 documented as of this encounter
--- OUTSIDE RECORDS SUMMARY | 2024-12-21 07:52 | XMS_ITS | Encounter Summary ---
Author Organization [facility] Address [address] [place] [address] Care Team Providers Care Airset Molder Name Role Phone Ab Hope Primary Care Provider [phone] Encounter Details Date Type Department Care Team (Late st Contact Info) Description 11/24/2024 Interim Notes [facility] @ [facility] [address] [place] [phone] Gabriela Alcantar [address] [place] [address] [phone] Social History Tobacco Use Types Packs/Day Years [...] on filedocumented in this encounter Care Teams Airset Molder Relationship Specialty Start Date End Date Ab Hope PA [address] [place] [phone] PCP - General [facility] 11/14/24 documented as of this encounter
[2024-12-21 08:21] LABS: MANUAL DIFF FLAG NO
[2024-12-21 08:22] LABS: Basophils Percent Auto 0.2 % (0-2); Eosinophils Percent Auto 0.1 % (0-4); Hematocrit 36.3 % (37.0-47.0); Hemoglobin 12.3 g/dl (12.0-16.0); Imm Gran Abs Auto 0.09 X10*3/uL (0.00-0.03); Imm Gran Pct Auto 0.6 % (0.0-0.4); Lymphocytes Absolute Auto 0.6 X10*3/uL (1.2-4.9); Mean Corpuscular HGB Conc 33.9 g/dl (31.0-35.0); Mean Corpuscular Volume 91.4 fL (80.0-98.0); Mean Platelet Volume 8.1 fL (9.4-12.3); Monocytes Absolute Auto 1.2 X10*3/uL (0.1-1.2); Monocytes Percent Auto 7.1 % (2-11); Neutrophils Absolute Auto 14.2 x10*3/uL (2.0-8.3); Platelet Count 416 X10*3/uL (160-400); Red Blood Count 3.97 X10*6/uL (4.20-5.50); Red Cell Distribution Width 13.5 % (11.0-16.0); White Blood Count 16.1 X10*3/uL (4.8-10.8)
[2024-12-21] MEDS: Acetaminophen 325 MG TABLET 650 MG PO (08:26)
--- NOTE | 2024-12-21 08:27 | PC.NURSE ---
IV established, labs obtained and sent. medicated w/ tylenol for fever. patient reports dizziness and cough ongoing for approx 1 week.
[2024-12-21 08:39] LABS: Alanine Aminotransferase 14 U/L (0-31); Albumin Level 4.2 g/dL (3.5-5.0); Alkaline Phosphatase 65 U/L (39-117); Anion Gap 12 (12-20); Aspartate Amino Transferase 20 U/L (5-31); Bilirubin Total 0.5 mg/dL (0.0-1.0); Blood Urea Nitrogen 9 mg/dL (9-16); Calcium 8.7 mg/dL (8.4-10.2); Carbon Dioxide 25 mmol/L (22-29); Chloride 103 mmol/L (96-108); Creatinine Clr Calc Pharmacy 82.7; Estimated Glomerular Filt Rate > 60; Glucose Random 80 mg/dL (60-115); Potassium 3.5 mmol/L (3.3-5.1); Sodium 136 mmol/L (135-145); Total Protein 7.6 g/dL (6.5-8.0)
--- NOTE | 2024-12-21 08:48 | ED_ITS ---
HPI - General Adult General Chief complaint: General Medical Stated complaint: Flu symptoms Time Seen by Provider: 12/21/24 08:48 Related Data Previous Rx's ?Medication ?Instructions ?Recorded ibuprofen 600 mg tablet 600 mg PO Q6H PRN fever or pain 12/17/24 #30 tabs meclizine 25 mg tablet 25 mg PO TID PRN dizziness #20 tabs 12/17/24 permethrin 5 % topical cream 1 appl topical Q14D 2 doses #60 12/19/24 grams cefpodoxime 200 mg tablet 200 mg PO BID 7 days #14 tabs 12/21/24 doxycycline monohydrate 100 mg 100 mg PO BID #14 caps 12/21/24 capsule ibuprofen 400 mg tablet 400 mg PO Q6H PRN pain #14 tabs 12/21/24 metronidazole 500 mg tablet 500 mg PO BID #14 tabs 12/22/24 Allergies Allergy/AdvReac Type Severity Reaction Status Date / Time Sulfa (Sulfonamide Allergy Unknown RASH Verified 12/21/24 07:42 Antibiotics) [SULFA (SULFONAMIDE ANTIBIOTICS)] Review of Systems 2 Review of Systems: Yes all other systems are reviewed and are negative Physical Exam ED Vital Signs: Vital Signs - 24 hr 12/21/24 09:36 12/21/24 11:35 12/21/24 14:08 Temperature 99.0 F 98.6 F 98.7 F Pulse Rate 104 H 91 92 Respiratory Rate 16 16 16 Blood Pressure 98/51 L 103/50 L 101/52 L Pulse Oximetry 97 97 97 Oxygen Delivery Method Room Air Room Air Room Air BMI result Body Mass Index 21.9 Const Other: The patient is awake and alert, pleasant cooperative. She looks slightly unwell but not in acute distress. Orientation/consciousness: patient oriented x3 HENMT Other: Face is symmetrical. Mucous membranes moist. Pharynx normal. Eyes General: appearance normal, both eyes and all related structures Neck Neck: Yes full ROM and Yes no lymphadenopathy Resp Effort & Inspection: normal respiratory effort Auscultation: clear to auscultation bilaterally Cardio Rate: tachycardic Rhythm: regular rhythm Heart sounds: S1 normal heart sound present and S2 normal heart sound present GI Other: Abdomen is soft and nontender Other: Normal external vaginal genitalia. Cervix appeared unremarkable. There was an IUD string present. Minimal discharge was apparent in the vagina. No cervical motion tenderness. Skin Other: Skin is pale and dry Neuro General: patient oriented x3, gait normal, tone normal and moves all extremities Extrem General: Yes no pedal edema Medications Administered Discontinued Medications Generic Name Dose Route Start Last Admin Trade Name Dion PRN Reason Stop Dose Admin Acetaminophen 650 mg 12/21/24 08:05 12/21/24 08:26 Acetaminophen 325 Mg Tablet PO 12/21/24 08:06 650 mg ONCE ONE Administration Ceftriaxone Sodium 1 gm 12/21/24 09:05 12/21/24 09:30 Ceftriaxone Sodium 1 Gm Vial IVPUSH 12/21/24 09:06 1 gm ONCE ONE Administration Sodium Chloride 1,000 mls @ 999 mls/hr 12/21/24 09:15 12/21/24 11:23 Ns IV 12/21/24 10:15 Infused .Q1H1M MIHAI Infusion Azithromycin 500 mg/ Sodium 250 mls @ 125 mls/hr 12/21/24 09:05 12/21/24 12:29 Chloride IV 12/21/24 11:04 Infused ONCE ONE Infusion Sodium Chloride 1,000 mls @ 999 mls/hr 12/21/24 11:00 12/21/24 12:29 Ns IV 12/21/24 12:00 Infused .Q1H1M MIHAI Infusion Ketorolac Tromethamine 10 mg 12/21/24 09:43 12/21/24 11:32 Ketorolac Tromethamine 15 Mg/Ml Vial IVPUSH 12/21/24 09:44 10 mg ONCE ONE Administration Medical Decision Making Medical Decision Making [facility] Narrative: The patient is a 39-year-old woman who presents with fever and a cough. She has a chest x-ray showing a right upper lobe infiltrate. She has a high white count. Blood cultures were drawn. She was given IV ceftriaxone and azithromycin. She was also concerned about an odor from her vagina and possible recurrence of bacterial vaginosis. I performed a pelvic exam that did not reveal any significant amount of discharge or odor. Her Trichomonas test was negative. She was discharged with prescriptions for cefpodoxime and doxycycline for her pneumonia. My plan was to contact her if there were any additional results from her pelvic exam. She has come back negative for chlamydia and gonorrhea positive for bacterial vaginosis. On December 22, the day following her ER visit, I tried to contact her to inform her that I had sent a prescription for metronidazole to the [facility] on [facility]. Unfortunately the phone number in our system [phone] was answered by someone who said they were not the patient. The primary contact had a phone number [phone]. This was a nonfunctional number. I called the [facility] pharmacy to see if they had any additional numbers. They told me that the patient had picked up her pneumonia antibiotics yesterday. The pharmacy had 2 numbers for the patient, . I tried this number and it went to a man's voice mail. The other number they had was the [phone] number which I had already tried and which was answered by a person who said they were not the patient and did not know the patient. I will see if we can send a certified letter with these results to the patient's address in [place]. However I am concerned that the patient might be homeless and this may not be a very functional address. Lab Data 12/21/24 08:15 12/21/24 08:15 Labs: Lab Results 12/21/24 12/21/24 12/21/24 Range/Units 08:15 09:16 13:34 WBC 16.1 H (4.8-10.8) X10*3/uL RBC 3.97 L (4.20-5.50) X10*6/uL Hgb 12.3 (12.0-16.0) g/dl Hct 36.3 L (37.0-47.0) % MCV 91.4 (80.0-98.0) fL MCH 31.0 (27.0-33.0) pg MCHC 33.9 (31.0-35.0) g/dl RDW 13.5 (11.0-16.0) % Plt Count 416 H (160-400) X10*3/uL MPV 8.1 L (9.4-12.3) fL Immature Gran % (Auto) 0.6 H (0.0-0.4) % Neut % (Auto) 88.0 H (45-73) % Lymph % (Auto) 4.0 L (20-40) % Weakley % (Auto) 7.1 (2-11) % Eos % (Auto) 0.1 (0-4) % Baso % (Auto) 0.2 (0-2) % Lymph # (Auto) 0.6 L (1.2-4.9) X10*3/uL [place]ley # (Auto) 1.2 (0.1-1.2) X10*3/uL Eos # (Auto) 0.0 (0.0-0.4) X10*3/uL Baso # (Auto) 0.0 (0.0-0.2) X10*3/uL Abs Immat Gran (auto) 0.09 H (0.00-0.03) X10*3/uL Absolute Neuts (auto) 14.2 H (2.0-8.3) x10*3/uL Absolute Nucleated RBC 0.000 (0.0-0.012) X10*3/uL Nucleated RBC % (auto) 0.0 (0.0-0.2) /100WBC Sodium 136 (135-145) mmol/L Potassium 3.5 (3.3-5.1) mmol/L Chloride 103 (96-108) mmol/L Carbon Dioxide 25 (22-29) mmol/L Anion Gap 12 (12-20) BUN 9 (9-16) mg/dL Creatinine 0.74 (0.5-1.4) mg/dL Estim Creat Clear Calc 82.7 Estimated GFR > 60 Random Glucose 80 (60-115) mg/dL Lactic Acid 1.3 (0.5-2.0) mmol/L Calcium 8.7 (8.4-10.2) mg/dL Total Bilirubin 0.5 (0.0-1.0) mg/dL AST 20 (5-31) U/L ALT 14 (0-31) U/L Alkaline Phosphatase 65 (39-117) U/L C-Reactive Protein 0.58 H (< or = 0.50) mg/dL Total Protein 7.6 (6.5-8.0) g/dL Albumin 4.2 (3.5-5.0) g/dL Beta HCG, Quant < 2 mIU/mL Chlam trachomat DNA PCR NOT DETECTED (Not Detect.) Influenza Type A (PCR) NEGATIVE (Negative) Influenza Type B (PCR) NEGATIVE (Negative) N.gonorrhoeae DNA (PCR) NOT DETECTED (Not Detect.) RSV RNA Qual (PCR) NEGATIVE (Negative) SARS-CoV-2 RNA (RT-PCR) NEGATIVE (Negative) T. vaginalis (PCR) NOT DETECTED (Not Detect) Bact vaginosis (PCR) POSITIVE A (Negative) C. krusei/glabrata (PCR) NOT DETECTED (Not Detect) Miryam group (PCR) NOT DETECTED (Not Detect) Discharge Plan Discharge Clinical Impression: Right upper lobe pneumonia, Bacterial vaginosis Patient Disposition: Home, Self-Care Instructions: Pneumonia (ED) Additional Instructions: Your x-ray shows that you have a pneumonia in your right upper lung. You has been started on antibiotics. The IV antibiotics you received will cover you till tomorrow morning. Please start taking the oral antibiotics prescribed tomorrow morning. Both of these antibiotics should be taken 2 times a day. You may use acetaminophen and ibuprofen as needed for discomfort or fever. Drink a lot of fluids. Please try to get a local primary care doctor. Return to the emergency room if you feel significantly worse Prescriptions: New cefpodoxime 200 mg tablet 200 mg PO BID 7 Days Qty: 14 0RF Rx Instructions: must administer with a meal/food doxycycline monohydrate 100 mg capsule 100 mg PO BID Qty: 14 0RF ibuprofen 400 mg tablet 400 mg PO Q6H PRN (Reason: pain) Qty: 14 0RF metronidazole 500 mg tablet 500 mg PO BID Qty: 14 0RF No Action permethrin 5 % cream 1 appl topical Q14D Qty: 60 0RF Rx Instructions: apply second treatment 14 days after first treatment if live lice remain meclizine 25 mg tablet 25 mg PO TID PRN (Reason: dizziness) Qty: 20 0RF ibuprofen 600 mg tablet 600 mg PO Q6H PRN (Reason: fever or pain) Qty: 30 0RF Interventions: ED Discharge Assessment Last Done: 12/21/24 14:08 Discharge Date/Time: 12/21/24 14:08 Print Language: Turkish
[2024-12-21 09:08] LABS: Influenza A PCR NEGATIVE (Negative); Influenza B PCR NEGATIVE (Negative); Resp Syncy Virus RNA Qual PCR NEGATIVE (Negative); SARS COV2 PCR INHOUSE NEGATIVE (Negative)
[2024-12-21 09:11] LABS: C Reactive Protein 0.58 mg/dL (< or = 0.50)
[2024-12-21] MEDS: cefTRIAXone sodium 1 GM VIAL IVPUSH (09:30)
[2024-12-21] MEDS: 0.9 % Sodium Chloride 1,000 ML 999 ML IV ×2 (09:30→11:32)
[2024-12-21] MEDS: Azithromycin 500 MG in 0.9 % Sodium Chloride 250 ML 125 MG IV (09:31)
[2024-12-21 09:36] VITALS: BP 98/51; PULSE 104; RESP 16; TEMP 37.2; O2SAT 97
[2024-12-21 09:40] LABS: HCG Quantitative < 2 mIU/mL
--- NOTE | 2024-12-21 09:43 | PC.NURSE ---
medicated per the MAR, patient's temp has improved and reports feeling better after tylenol. fluids/antibiotics infusing. resting quietly in room with no obvious signs/symptoms of distress noted. call dalton within reach.
[2024-12-21 09:46] LABS: Lactic Acid 1.3 mmol/L (0.5-2.0)
[2024-12-21] MEDS: Ketorolac Tromethamine 15 MG/ML VIAL 10 MG IVPUSH (11:32)
[2024-12-21 11:35] VITALS: BP 103/50; PULSE 91; RESP 16; TEMP 37; O2SAT 97
--- NOTE | 2024-12-21 12:25 | PC.NURSE ---
upon discharge, patient requesting antibiotics for BV. provider to bedside, patient requesting pelvic exam
[2024-12-21 14:08] VITALS: BP 101/52; PULSE 92; RESP 16; TEMP 37.1; O2SAT 97
[2024-12-21 15:15] LABS: Bacterial Vaginosis PCR POSITIVE (Negative); Candida Group PCR NOT DETECTED (Not Detect); Candida glab krusei PCR NOT DETECTED (Not Detect); Trichomonas vaginalis PCR NOT DETECTED (Not Detect)
[2024-12-21 15:44] LABS: CT PCR NOT DETECTED (Not Detect.); NG PCR NOT DETECTED (Not Detect.)
== END 2024-12-21 14:08 | disposition home or self-care (01) ==
PROVIDERS: Emergency Provider Emergency Medicine
DX: J18.9 Pneumonia, unspecified organism (principal); N76.0 Acute vaginitis; R05.9 Cough, unspecified; R42 Dizziness and giddiness; Z03.818 Encounter for observation for suspected exposure to other biological agents ruled out
CPT/HCPCS: 0241U; 36415; 71045; 80053; 81515; 83605; 84702; 85025; 86140; 87040; 87491; 87591; 93005; 96361; 96374; 96375; 99285; J0456; J0696; J1885

== ENCOUNTER → 2024-12-21 08:15 | Outpatient (BNV) | payer OTHER, SELFPAY | PROVIDERS: Emergency Provider Emergency Medicine; Visit Provider Internal Medicine Cardiovascular Disease | DX: R42 Dizziness and giddiness (principal) | CPT/HCPCS: 93010 ==

== ENCOUNTER → 2024-12-21 08:38 | Outpatient (BNV) | payer OTHER, SELFPAY | PROVIDERS: Emergency Provider Emergency Medicine; Visit Provider Radiology Diagnostic Radiology | DX: J98.4 Other disorders of lung (principal) | CPT/HCPCS: 71045 ==